=== PATIENT | female | born 1955 | race Caucasian/White ===

== ENCOUNTER 2018-12-07 21:54 | Inpatient (IN) | payer MEDICARE, OTHER ==
[2018-12-07] MEDS ORDERED: SUCCINYLCHOLINE CHLORIDE VIAL 200 MG/10 ML VIAL IV STA (21:59)
[2018-12-07] MEDS ORDERED: ETOMIDATE 2 MG/ML 10 ML VIAL IVP STA (21:59)
[2018-12-07 22:01] LABS: Glucose,Whole Blood 230 mg/dL (75-99)
[2018-12-07] MEDS ORDERED: IPRATROPIUM-ALBUTEROL 3 ML NEB INHALATION STA (22:10)
[2018-12-07] MEDS ORDERED: MAGNESIUM SULFATE-D5W PMX 2 GM in DEXTROSE/WATER 1 100ML.BAG IVPB STA (22:10)
[2018-12-07] MEDS ORDERED: SODIUM CHLORIDE 0.9% 1,000 ML IV STA (22:10)
[2018-12-07] MEDS ORDERED: methylPREDNISolone SOD SUCCI 125 MG/2 ML VIAL IV STA (22:10)
[2018-12-07] MEDS ORDERED: PROPOFOL 1,000 MG in EMPTY BAG 1 BAG IV ONE (22:14)
[2018-12-07] MEDS ORDERED: PROPOFOL 10 MG/ML 20 ML VIAL IV ONE (22:25)
[2018-12-07 22:30] LABS: Appearance,Urine Clear (Clear); Bilirubin,Urine Negative (Negative); Blood,Urine Negative (Negative); Color,Urine Yellow; Glucose,Urine (UA) Negative (Negative); Ketones,Urine Negative (Negative); Leukocyte Esterase,Urine Negative (Negative); Nitrite,Urine Negative (Negative); Protein,Urine Negative (Negative); Specific Gravity,Urine 1.015 (1.001-1.035); Urobilinogen,Urine <2.0 mg/dL (<2.0)
[2018-12-07 22:31] LABS: HCT 45.3 % (34.0-46.0); HGB 14.2 gm/dL (11.4-16.0); MCH 29.5 pg (25.0-35.0); MCHC 31.4 g/dL (31.0-37.0); MCV 93.8 fL (80.0-100.0); Mean Platelet Volume 8.7; Platelet Count 335 k/uL (150-450); RBC 4.83 m/uL (3.80-5.40); RDW 14.3 % (11.5-15.5); WBC 16.9 k/uL (3.8-10.6)
[2018-12-07 22:39] LABS: Albumin 4.2 g/dL (3.5-5.0); Calcium 9.2 mg/dL (8.4-10.2); Magnesium 2.3 mg/dL (1.6-2.3); Potassium 4.6 mmol/L (3.5-5.1); Total Bilirubin 0.3 mg/dL (0.2-1.3); Total Protein 6.4 g/dL (6.3-8.2)
[2018-12-07 22:41] LABS: D-Dimer 0.4 mg/L FEU (<0.60); Partial Thromboplastin Time 27.2 sec (22.0-30.0); Prothrombin Time 10.6 sec (9.0-12.0)
--- NOTE | 2018-12-07 22:42 | XR ---
EXAM: XR Chest, 1 View CLINICAL HISTORY: ITS.REASON XR Reason: tube placement TECHNIQUE: Frontal view of the chest. COMPARISON: No relevant prior studies available. FINDINGS: Lungs: Unremarkable. No consolidation. Pleural space: Unremarkable. No pneumothorax. Heart: Unremarkable. No cardiomegaly. Mediastinum: Unremarkable. Bones/joints: Unremarkable. Tubes, lines and devices: Endotracheal tube tip is approximately 4.4 cm above delon. IMPRESSION: No acute findings.
[2018-12-07 22:47] LABS: ABG Base Excess -10.9 mmol/L; ABG HCO3 17 mmol/L (21-25); ABG Oxygen Saturation 99.4 % (94-97); ABG PCO2 45 mmHg (35-45); ABG PO2 296 mmHg (83-108); ABG TCO2 19 mmol/L (19-24); Allen Test Performed? Yes
[2018-12-07] MEDS ORDERED: MIDAZOLAM 1 MG/ML 5 ML VIAL IV STA (22:55)
[2018-12-07 23:14] LABS: Band Neutrophils % 2 %; Eosinophils # (M) 0.68 k/uL (0-0.7); Lymphocytes # (M) 10.82 k/uL (1.0-4.8); Monocytes # (M) 1.18 k/uL (0-1.0); Neutrophils % (M) 23 %; Nucleated Red Blood Cells 0 /100 WBC (0-0); Total Cells Counted 100
[2018-12-07] MEDS ORDERED: ONDANSETRON 4 MG/2 ML VIAL IVP STA (23:16)
[2018-12-07 23:20] LABS: Poikilocytosis (M) Present
--- NOTE | 2018-12-07 23:33 | ED ---
General Adult HPI - General Chief complaint: Shortness of Breath Stated complaint: Diff Breathing Source: patient, EMS Mode of arrival: EMS Limitations: no limitations - History of Present Illness Initial comments: The patient is a 63-year-old female with past medical history of asthma who presents to the emergency department in respiratory distress. The history is provided by EMS and her daughter. Daughter states that they were at her house eating dinner. The patient had sudden onset of an asthma exacerbation. She does keep some of her equipment at her daughter's house. She did take a nebulizer breathing treatment which did not improve her symptoms. Daughter states that she then went to the window to get some air and went unresponsive. She did not fall to the ground. EMS was called. They state that the patient was satting in the 60s. She was unresponsive. They did attempt to intubate the patient however she still had a gag reflex. She does arrive to us unresponsive to painful stimuli. She has about 6 respirations per minute. The daughter states that she felt well up until her episode. There is no report of any cough, fevers or chills. Daughter states that she was exposed to cats and does have a severe ALLERGY to them. Remainder of the HPI is limited. - Related Data Home Medications Medication Instructions Recorded Confirmed ALPRAZolam [Xanax] 0.5 mg PO BID 02/23/14 12/07/18 Albuterol Inhaler [Ventolin Hfa 1 - 2 puff INHALATION RT-Q6H PRN 02/23/14 12/07/18 Inhaler] Albuterol Nebulized [Ventolin 2.5 mg INHALATION RT-Q4H PRN 02/23/14 12/07/18 Nebulized] Cyclobenzaprine [Flexeril] 5 mg PO TID PRN 12/07/18 12/07/18 Gabapentin [Neurontin] 100 mg PO TID 12/07/18 12/07/18 Ketorolac [Toradol] 10 mg PO Q6HR PRN 12/07/18 12/07/18 Allergies Allergy/AdvReac Type Severity Reaction Status Date / Time bupropion HCl Allergy Rash/Hives Verified 12/07/18 23:09 [From Wellbutrin] shellfish derived Allergy Anaphylaxis Verified 12/07/18 23:09 Review of Systems ROS Statement: Those systems with pertinent positive or pertinent negative responses have been documented in the HPI. ROS Other: All systems not noted in ROS Statement are negative. Past Medical History Past Medical History: Asthma, COPD, Fibromyalgia, Sleep Apnea/CPAP/BIPAP Additional Past Medical History / Comment(s): MANY ENVIRONMENTAL ALLERGIES. HX MIGRAINES. HX KIDNEY AND BLADDER STONES History of Any Multi-Drug Resistant Organisms: None Reported, MRSA Date of last positivie culture/infection: 03/16/2013 MDRO Source:: THIRD FINGER LEFT HAND Past Surgical History: Heart Catheterization, Hysterectomy, Orthopedic Surgery Additional Past Surgical History / Comment(s): RT ROTATOR CUFF REPAIR. COLONOSCOPY. RHINOPLASTY Past Anesthesia/Blood Transfusion Reactions: Motion Sickness, Postoperative N ausea & Vomiting (PONV) Past Psychological History: Anxiety, Depression Smoking Status: Current every day smoker Past Alcohol Use History: Heavy Past Drug Use History: None Reported, Marijuana - Past Family History Mother Family Medical History: Cancer, Deep Vein Thrombosis (DVT) General Exam Limitations: no limitations Course Vital Signs 12/07/18 12/07/18 12/07/18 21:59 22:23 22:33 Temperature 98.2 F Pulse Rate 138 H 144 H 154 H Respiratory 25 H Rate Blood Pressure 135/92 75/38 O2 Sat by Pulse 95 96 Oximetry 12/07/18 12/07/18 12/07/18 22:45 23:00 23:30 Temperature Pulse Rate 154 H 97 89 Respiratory 25 H 40 H 17 Rate Blood Pressure 94/78 102/61 107/68 O2 Sat by Pulse 98 100 100 Oximetry 12/07/18 12/08/18 23:45 00:00 Temperature Pulse Rate 87 91 Respiratory 17 18 Rate Blood Pressure 104/75 105/88 O2 Sat by Pulse 100 100 Oximetry EKG Findings - EKG Comments: EKG Findings:: At 2203 demonstrate a troponin fibrillation with a rapid ventricular response of 139. VT interval is 0 QRS 80. QTC of 474. There are no acute ST segment elevations or depressions concerning for ischemic changes. Repeat EKG at 2306 demonstrates a normal sinus rhythm with a ventricular rate of 94. VT Interval 134. QRS 66. QTC of 400. There are no acute ST segment elevations or depressions concerning for ischemic changes Medical Decision Making - Medical Decision Making Upon arrival the patient is placed immediately in trauma bay 2. She is hooked up to continuous pulse ox and cardiac monitoring. The patient is satting only in the 80s being bagged by EMS. She is unresponsive at this time, I did intubate the patient. Rapid sequence intubation was performed using 100 mg of succinylcholine and 20 mg of etomidate. This Glidescope was utilized. The tube was visualized passing through the cords. A 7-1/2 tube was secured at 24 cm at the lip. Breath sounds were auscultated bilaterally. The patient was placed on the vent. We did provide her with a DuoNeb breathing treatment. She was provided with 125 mg of Solu-Medrol and 2 g of magnesium. A post intubation chest x-ray was performed and demonstrates adequate tube placement with no signs of pneumothorax. Laboratory studies were conducted. Upon review of the results are discussed with the patient's family. Initial 12-lead EKG demonstrated atrial fibrillation. The patient does spontaneously convert and a second EKG demonstrates a normal sinus rhythm. The patient will be admitted to the intensive care unit. I called and discussed case with Dr. Carol singer present to the ED to evaluate the patient. A call discuss the case with Dr. Carr who did accept the admission. Dr. Carr does request a negative CT of the patient's brain. Throughout the stay within the ED the patient maintained a stable heart rate and pulse ox. She was difficult to sedate on the propofol as with increme ntal increases in the propofol she would have a drop in her blood pressure. She was given within 4 mg of Versed. I then ordered a Versed drip. The patient's was titrated him a Versed drip per remained difficult to sedate and therefore was also given a 50 g dose of fentanyl. She was then taken to CT in stable condition and transferred up to the ICU. - Lab Data Result diagrams: 12/07/18 22:06 12/07/18 22:06 Lab Results 12/07/18 12/07/18 12/07/18 Range/Units 22:00 22:06 22:06 WBC 16.9 H (3.8-10.6) k/uL RBC 4.83 (3.80-5.40) m/uL Hgb 14.2 (11.4-16.0) gm/dL Hct 45.3 (34.0-46.0) % MCV 93.8 (80.0-100.0) fL MCH 29.5 (25.0-35.0) pg MCHC 31.4 (31.0-37.0) g/dL RDW 14.3 (11.5-15.5) % Plt Count 335 (150-450) k/uL Neutrophils % (Manual) 23 % Band Neutrophils % 2 % Lymphocytes % (Manual) 64 % Monocytes % (Manual) 7 % Eosinophils % (Manual) 4 % Neutrophils # (Manual) 4.20 (1.3-7.7) k/uL Lymphocytes # (Manual) 10.82 H (1.0-4.8) k/uL Monocytes # (Manual) 1.18 H (0-1.0) k/uL Eosinophils # (Manual) 0.68 (0-0.7) k/uL Nucleated RBCs 0 (0-0) /100 WBC Manual Slide Review Performed Poikilocytosis (manual Present PT (9.0-12.0) sec INR (<1.2) APTT (22.0-30.0) sec D-Dimer (<0.60) mg/L FEU Sample Site ABG pH (7.35-7.45) ABG pCO2 (35-45) mmHg ABG pO2 (83-108) mmHg ABG HCO3 (21-25) mmol/L ABG Total CO2 (19-24) mmol/L ABG O2 Saturation (94-97) % ABG Base Excess mmol/L Roderick Test FiO2 % Sodium 142 (137-145) mmol/L Potassium 4.6 (3.5-5.1) mmol/L Chloride 107 (98-107) mmol/L Carbon Dioxide 20 L (22-30) mmol/L Anion Gap 15 mmol/L BUN 16 (7-17) mg/dL Creatinine 1.01 (0.52-1.04) mg/dL Est GFR (CKD-EPI)AfAm 69 (>60 ml/min/1.73 sqM) Est GFR (CKD-EPI)NonAf 60 (>60 ml/min/1.73 sqM) Glucose 250 H (74-99) mg/dL POC Glucose (mg/dL) 230 H (75-99) mg/dL POC Glu Post Anesthesia Care Unit Nurse ID Tierra Lange Calcium 9.2 (8.4-10.2) mg/dL Magnesium 2.3 (1.6-2.3) mg/dL Total Bilirubin 0.3 (0.2-1.3) mg/dL AST 30 (14-36) U/L ALT 31 (9-52) U/L Alkaline Phosphatase 67 (38-126) U/L Troponin I (0.000-0.034) ng/mL NT-Pro-B Natriuret Pep pg/mL Total Protein 6.4 (6.3-8.2) g/dL Albumin 4.2 (3.5-5.0) g/dL Urine Color Urine Appearance (Clear) Urine pH (5.0-8.0) Ur Specific [place] (1.001-1.035) Urine Protein (Negative) Urine Glucose (UA) (Negative) Urine Ketones (Negative) Urine Blood (Negative) Urine Nitrite (Negative) Urine Bilirubin (Negative) Urine Urobilinogen (<2.0) mg/dL Ur Leukocyte Esterase (Negative) 12/07/18 12/07/18 12/07/18 Range/Units 22:06 22:06 22:06 WBC (3.8-10.6) k/uL RBC (3.80-5.40) m/uL Hgb (11.4-16.0) gm/dL Hct (34.0-46.0) % MCV (80.0-100.0) fL MCH (25.0-35.0) pg MCHC (31.0-37.0) g/dL RDW (11.5-15.5) % Plt Count (150-450) k/uL Neutrophils % (Manual) % Band Neutrophils % % Lymphocytes % (Manual) % Monocytes % (Manual) % Eosinophils % (Manual) % Neutrophils # (Manual) (1.3-7.7) k/uL Lymphocytes # (Manual) (1.0-4.8) k/uL Monocytes # (Manual) (0-1.0) k/uL Eosinophils # (Manual) (0-0.7) k/uL Nucleated RBCs (0-0) /100 WBC Manual Slide Review Poikilocytosis (manual PT 10.6 (9.0-12.0) sec INR 1.0 (<1.2) APTT 27.2 (22.0-30.0) sec D-Dimer 0.40 (<0.60) mg/L FEU Sample Site ABG pH (7.35-7.45) ABG pCO2 (35-45) mmHg ABG pO2 (83-108) mmHg ABG HCO3 (21-25) mmol/L ABG Total CO2 (19-24) mmol/L ABG O2 Saturation (94-97) % ABG Base Excess mmol/L Roderick Test FiO2 % Sodium (137-145) mmol/L Potassium (3.5-5.1) mmol/L Chloride (98-107) mmol/L Carbon Dioxide (22-30) mmol/L Anion Gap mmol/L BUN (7-17) mg/dL Creatinine (0.52-1.04) mg/dL Est GFR (CKD-EPI)AfAm (>60 ml/min/1.73 sqM) Est GFR (CKD-EPI)NonAf (>60 ml/min/1.73 sqM) Glucose (74-99) mg/dL POC Glucose (mg/dL) (75-99) mg/dL POC Glu Post Anesthesia Care Unit Nurse ID Calcium (8.4-10.2) mg/dL Magnesium (1.6-2.3) mg/dL Total Bilirubin (0.2-1.3) mg/dL AST (14-36) U/L ALT (9-52) U/L Alkaline Phosphatase (38-126) U/L Troponin I <0.012 (0.000-0.034) ng/mL NT-Pro-B Natriuret Pep 56 pg/mL Total Protein (6.3-8.2) g/dL Albumin (3.5-5.0) g/dL Urine Color Urine Appearance (Clear) Urine pH (5.0-8.0) Ur Specific [place] (1.001-1.035) Urine Protein (Negative) Urine Glucose (UA) (Negative) Urine Ketones (Negative) Urine Blood (Negative) Urine Nitrite (Negative) Urine Bilirubin (Negative) Urine Urobilinogen (<2.0) mg/dL Ur Leukocyte Esterase (Negative) 12/07/18 12/07/18 Range/Units 22:15 22:44 WBC (3.8-10.6) k/uL RBC (3.80-5.40) m/uL Hgb (11.4-16.0) gm/dL Hct (34.0-46.0) % MCV (80.0-100.0) fL MCH (25.0-35.0) pg MCHC (31.0-37.0) g/dL RDW (11.5-15.5) % Plt Count (150-450) k/uL Neutrophils % (Manual) % Band Neutrophils % % Lymphocytes % (Manual) % Monocytes % (Manual) % Eosinophils % (Manual) % Neutrophils # (Manual) (1.3-7.7) k/uL Lymphocytes # (Manual) (1.0-4.8) k/uL Monocytes # (Manual) (0-1.0) k/uL Eosinophils # (Manual) (0-0.7) k/uL Nucleated RBCs (0-0) /100 WBC Manual Slide Review Poikilocytosis (manual PT (9.0-12.0) sec INR (<1.2) APTT (22.0-30.0) sec D-Dimer (<0.60) mg/L FEU Sample Site rrad ABG pH 7.20 L (7.35-7.45) ABG pCO2 45 (35-45) mmHg ABG pO2 296 H (83-108) mmHg ABG HCO3 17 L (21-25) mmol/L ABG Total CO2 19 (19-24) mmol/L ABG O2 Saturation 99.4 H (94-97) % ABG Base Excess -10.9 mmol/L Roderick Test Yes FiO2 100 % Sodium (137-145) mmol/L Potassium (3.5-5.1) mmol/L Chloride (98-107) mmol/L Carbon Dioxide (22-30) mmol/L Anion Gap mmol/L BUN (7-17) mg/dL Creatinine (0.52-1.04) mg/dL Est GFR (CKD-EPI)AfAm (>60 ml/min/1.73 sqM) Est GFR (CKD-EPI)NonAf (>60 ml/min/1.73 sqM) Glucose (74-99) mg/dL POC Glucose (mg/dL) (75-99) mg/dL POC Glu Post Anesthesia Care Unit Nurse ID Calcium (8.4-10.2) mg/dL Magnesium (1.6-2.3) mg/dL Total Bilirubin (0.2-1.3) mg/dL AST (14-36) U/L ALT (9-52) U/L Alkaline Phosphatase (38-126) U/L Troponin I (0.000-0.034) ng/mL NT-Pro-B Natriuret Pep pg/mL Total Protein (6.3-8.2) g/dL Albumin (3.5-5.0) g/dL Urine Color Yellow Urine Appearance Clear (Clear) Urine pH 5.0 (5.0-8.0) Ur Specific [place] 1.015 (1.001-1.035) Urine Protein Negative (Negative) Urine Glucose (UA) Negative (Negative) Urine Ketones Negative (Negative) Urine Blood Negative (Negative) Urine Nitrite Negative (Negative) Urine Bilirubin Negative (Negative) Urine Urobilinogen <2.0 (<2.0) mg/dL Ur Leukocyte Esterase Negative (Negative) Critical Care Time Critical Care Time: Yes (35 minutes) Disposition Clinical Impression: Respiratory disorder with ventilator dependence, Asthma exacerbation Disposition: ADMITTED IP TO THIS [facility] Condition: Serious Is patient prescribed a controlled substance at d/c from ED?: No Decision to Admit Reason: Admit from EC Decision Date: 12/07/18 Decision Time: 23:49
[2018-12-07] MEDS ORDERED: MIDAZOLAM HCL 50 MG in SODIUM CHLORIDE 0.9% 40 ML IV SCH (23:45)
[2018-12-07] MEDS ORDERED: NALOXONE 0.4 MG/ML 1 ML VIAL IV PRN (23:50)
[2018-12-08] MEDS ORDERED: fentaNYL (PF) 50 MCG/ML 2 ML AMP IVP STA (00:39)
--- NOTE | 2018-12-08 00:55 | P.HPIM ---
History of Present Illness H&P Date: 12/08/18 Patient is 63-year-old female with a PMH of asthma, tobacco abuse, multiple environmental allergens, objective sleep apnea on CPAP, fibromyalgia, and Sjogren's syndrome, presented to the ED via EMS for respiratory distress. The patient was in her usual state of health and was at her daughter's house where she suddenly developed shortness of breath, walked over to the window to try and get some fresh air when her breathing worsened and she developed wheezing. The patient is allergic to cats and the daughter was concerned she may have been exposed to cat allergens at her home. EMS was activated and upon arrival, the patient was found to be in severe respiratory distress. She was hypoxic w/ SpO2 % in the 60s. They attempted to intubate the patient en-route but were unable to since the patient had a gag-reflex. The patient was subsequently brought in to the ED where as per the ED physician, the patient had severely diminished breath sounds with apical wheezing. She was intubated and placed on mechanical ventilation. She was started on Sedation w/ Propofol and Versed, though the initial bolus of propofol did drop her BP. Also was informed by the ED physician that patient was noted to be in Afib w/ RVR upon presentation, though converted spontaneously following intubation. The patient was seen in the ED post intubation with family at the bedside. They reported that the patient had never been hospitalized for an asthma exacerbation. They otherwise denied the patient complaining of anything prior to this episode. The patient underwent an extensive evaluation in the ED w/ post-intubation CXR showing ETT 4 cm above the delon. Laboratory evaluation revealed Trop < 0.012, BNP 56, D-dimer 0.40, WBC count 16.9, Hgb 14.2, Na 142, K 4.6, BUN 16, Cr 1.01, and Glucose 250. The patient is being admitted to the MICU for further management of her acute asthma exacerbation w/ acute hypoxic respiratory failure. Review of Systems ROS unobtainable: due to endotracheal tube Past Medical History Past Medical History: Asthma, COPD, Fibromyalgia, Sleep Apnea/CPAP/BIPAP Additional Past Medical History / Comment(s): MANY ENVIRONMENTAL ALLERGIES. HX MIGRAINES. HX KIDNEY AND BLADDER STONES History of Any Multi-Drug Resistant Organisms: None Reported, MRSA Date of last positivie culture/infection: 03/16/2013 MDRO Source:: THIRD FINGER LEFT HAND Past Surgical History: Heart Catheterization, Hysterectomy, Orthopedic Surgery Additional Past Surgical History / Comment(s): RT ROTATOR CUFF REPAIR. COLONOSCOPY. RHINOPLASTY Past Anesthesia/Blood Transfusion Reactions: Motion Sickness, Postoperative Nausea & Vomiting (PONV) Past Psychological History: Anxiety, Depression Smoking Status: Current every day smoker Past Alcohol Use History: Heavy Past Drug Use History: None Reported, Marijuana - Past Family History Mother Family Medical History: Cancer, Deep Vein Thrombosis (DVT) Medications and Allergies Home Medications Medication Instructions Recorded Confirmed Type ALPRAZolam [Xanax] 0.5 mg PO BID 02/23/14 12/07/18 History Albuterol Inhaler [Ventolin Hfa 1 - 2 puff INHALATION RT-Q6H PRN 02/23/14 12/07/18 History Inhaler] Albuterol Nebulized [Ventolin 2.5 mg INHALATION RT-Q4H PRN 02/23/14 12/07/18 History Nebulized] Cyclobenzaprine [Flexeril] 5 mg PO TID PRN 12/07/18 12/07/18 History Gabapentin [Neurontin] 100 mg PO TID 12/07/18 12/07/18 History Ketorolac [Toradol] 10 mg PO Q6HR PRN 12/07/18 12/07/18 History Allergies Allergy/AdvReac Type Severity Reaction Status Date / Time bupropion HCl Allergy Rash/Hives Verified 12/07/18 23:09 [From Wellbutrin] shellfish derived Allergy Anaphylaxis Verified 12/07/18 23:09 Physical Exam Vitals: Vital Signs Temp Pulse Resp BP Pulse Ox 12/08/18 00:00 91 18 105/88 100 12/07/18 23:45 87 17 104/75 100 12/07/18 23:30 89 17 107/68 100 12/07/18 23:00 97 40 H 102/61 100 12/07/18 22:45 154 H 25 H 94/78 98 12/07/18 22:33 154 H 25 H 75/38 96 12/07/18 22:23 144 H 12/07/18 21:59 98.2 F 138 H 135/92 95 Intake and Output 12/07/18 12/07/18 12/08/18 14:59 22:59 06:59 Intake Total 18.126 Balance 18.126 Intake: Intake, IV Titration 18.126 Amount Propofol 1,000 mg In 18.126 Empty Bag 1 bag @ Titrate IV .Q0M ONE Rx#: [id number] Other: Weight 81.647 kg General: Intubated F w/ ETT, in NAD, overweight Derm: no unusual rashes/lesions no unusual ecchymoses, warm, dry Head: atraumatic, normocephalic, symmetric Eyes: Anicteric sclera, pupils equal round reactive to light ENT: Nose and ears atraumatic Neck: no cervical lymphadenopathy, trachea midline, supple Cardiovascular: S1S2 reg, no murmur, positive posterior tibial pulse bilateral, no edema, capillary refill less than 2 seconds Lungs: Bilateral equal breath sounds appreciated, no rales, ronchi, or wheezing appreciated Abdominal: soft, no appreciable organomegaly, normal bowel sounds Ext: no gross muscle atrophy, no contractures Neuro: Moving all extremities, no focal deficits noted Psych: Unable to assess since intubated w/ sedation Results CBC & Chem 7: 12/07/18 22:06 12/07/18 22:06 Labs: Abnormal Lab Results - Last 24 Hours (Table) 12/07/18 12/07/18 12/07/18 Range/Units 22:00 22:06 22:06 WBC 16.9 H (3.8-10.6) k/uL Lymphocytes # (Manual) 10.82 H (1.0-4.8) k/uL Monocytes # (Manual) 1.18 H (0-1.0) k/uL ABG pH (7.35-7.45) ABG pO2 (83-108) mmHg ABG HCO3 (21-25) mmol/L ABG O2 Saturation (94-97) % Carbon Dioxide 20 L (22-30) mmol/L Glucose 250 H (74-99) mg/dL POC Glucose (mg/dL) 230 H (75-99) mg/dL 12/07/18 Range/Units 22:44 WBC (3.8-10.6) k/uL Lymphocytes # (Manual) (1.0-4.8) k/uL Monocytes # (Manual) (0-1.0) k/uL ABG pH 7.20 L (7.35-7.45) ABG pO2 296 H (83-108) mmHg ABG HCO3 17 L (21-25) mmol/L ABG O2 Saturation 99.4 H (94-97) % Carbon Dioxide (22-30) mmol/L Glucose (74-99) mg/dL POC Glucose (mg/dL) (75-99) mg/dL Assessment and Plan Plan: Acute asthma exacerbation w/ hypoxic resp failure requiring mechanical ventilation -ICU level of care -Ventilator bundle, oral hygiene -Will defer sedation and ventilator management to the critical care team -Currently on Propofol and -C/w Solumedrol 60 mg q8h -Critical care consult Episode of Afib, possibly due to multiple uses of beta agoists and hypoxic resp failure -Cardiology consulted -Hold off on anticoagulation for now Leukocytosis, no signs of infection at this time -Monitor for now -Likely due to acute stressor Hyperglycemia -Check A1C -Insulin sliding scale w/ blood glucose monitoring Tobacco abuse DVT prophylaxis -Heparin The patient is admitted with an anticipated more than 2 midnight stay for evaluation of acute asthma exacerbation CODE STATUS:Full Code Discussed with: Sisters Anticipated discharge date: 12/12/[address]: Home A total of 45 minutes was spent on the care of this complex patient more than 50% of the time was spent in counseling and care coordination.
[2018-12-08 01:27] LABS: Glucose,Whole Blood 107 mg/dL (75-99)
[2018-12-08] MEDS ORDERED: INSULIN ASPART (NovoLOG) 100 UNIT/ML VIAL SQ SCH ×2 (01:30→06:00)
--- NOTE | 2018-12-08 01:38 | CT ---
EXAM: CT Head Without Intravenous Contrast CLINICAL HISTORY: ITS.REASON CT Reason: pain TECHNIQUE: Axial computed tomography images of the head/brain without intravenous contrast. CTDI is 49 mGy and DLP is 1204 mGy-cm. This CT exam was performed using one or more of the following dose reduction techniques: automated exposure control, adjustment of the mA and/or kV according to patient size, and/or use of iterative reconstruction technique. COMPARISON: No relevant prior studies available. FINDINGS: Brain: No hemorrhage, large hypodensity, or mass effect. Ventricles: No hydrocephalus. Mild cerebral volume loss. Bones/joints: Unremarkable. Soft tissues: Unremarkable. Sinuses: Unremarkable. Mastoid air cells: Clear. IMPRESSION: No acute hemorrhage, hydrocephalus, or mass effect.
[2018-12-08] MEDS: PROPOFOL 1,000 MG in EMPTY BAG 1 BAG IV SCH ×2 (02:45→06:51)
[2018-12-08] MEDS ORDERED: DEXTROSE 5% IN WATER 1,000 ML with SODIUM BICARB (1 MEQ/ML) 150 ML IV SCH (03:15)
[2018-12-08] MEDS ORDERED: fentaNYL (PF) 1,000 MCG in SODIUM CHLORIDE 0.9% 80 ML IV SCH ×2 (03:15→04:00)
[2018-12-08 04:25] LABS: Basophils % (A) 0 %; Eosinophils # (A) 0.1 k/uL (0-0.7); Eosinophils % (A) 1 %; HGB 14.2 gm/dL (11.4-16.0); Lymphocytes # (A) 1.3 k/uL (1.0-4.8); Lymphocytes % (A) 10 %; MCH 29.5 pg (25.0-35.0); MCHC 32.9 g/dL (31.0-37.0); MCV 89.7 fL (80.0-100.0); Mean Platelet Volume 8.4; Monocytes # (A) 0.3 k/uL (0-1.0); Monocytes % (A) 2 %; Neutrophils # (A) 10.7 k/uL (1.3-7.7); Neutrophils % (A) 87 %; Platelet Count 240 k/uL (150-450); WBC 12.3 k/uL (3.8-10.6)
[2018-12-08 04:35] LABS: African American GFR (CKD) >90 (>60 ml/min/1.73 sqM); Anion Gap 9 mmol/L; Blood Urea Nitrogen 19 mg/dL (7-17); Calcium 8.5 mg/dL (8.4-10.2); Carbon Dioxide 21 mmol/L (22-30); Chloride 110 mmol/L (98-107); Glucose 124 mg/dL (74-99); Potassium 4.7 mmol/L (3.5-5.1); Sodium 140 mmol/L (137-145)
[2018-12-08 05:23] LABS: Glucose,Whole Blood 149 mg/dL (75-99)
--- NOTE | 2018-12-08 06:53 | XR ---
EXAMINATION TYPE: XR chest 1V portable DATE OF EXAM: 12/08/2018 CLINICAL HISTORY: Difficulty breathing progress study. TECHNIQUE: Single AP portable semiupright view of the chest is obtained. COMPARISON: Chest x-ray from one day earlier FINDINGS: New nasogastric tube projects below diaphragm. Stable endotracheal tube. Lungs remain abdullahi r without pleural effusion or pneumothorax. Cardiac silhouette size remains within normal limits with atherosclerotic change in aortic knob. Osseous structures are intact. IMPRESSION: Overall stable findings, no acute pulmonary process.
[2018-12-08] MEDS ORDERED: methylPREDNISolone SOD SUCCI 40 MG/ML 1 ML VIAL IV SCH (08:00)
[2018-12-08 08:38] LABS: ABG Base Excess -1.3 mmol/L; ABG HCO3 23 mmol/L (21-25); ABG Oxygen Saturation 99.5 % (94-97); ABG PCO2 37 mmHg (35-45); ABG PH 7.41 (7.35-7.45); ABG PO2 187 mmHg (83-108); ABG TCO2 25 mmol/L (19-24); Allen Test Performed? Yes
[2018-12-08] MEDS ORDERED: CHLORHEXIDINE GLUCONATE 15 ML CUP MUCOUS MEM SCH (09:00)
[2018-12-08] MEDS: IPRATROPIUM-ALBUTEROL 3 ML NEB INHALATION PRN ×2 (09:05→12:07)
--- NOTE | 2018-12-08 09:21 | CONS ---
CONSULTATION Mrs. Jamil is a 63-year-old female who presented to the emergency room with an acute dyspneic event requiring mechanical ventilation. The history is obtained from the records. Apparently, the patient has history of obstructive sleep apnea, chronic tobacco use, bronchial asthma, fibromyalgia, Sjogren syndrome. She was quite dyspneic in the emergency room and was intubated in the emergency room. She had an episode of atrial fibrillation that converted spontaneously to sinus mechanism. She continues to be in sinus mechanism at this time. I do not have any prior records related to cardiac disease. She had no further episode of arrhythmia and no evidence of hemodynamic compromise. She will be seen by Dr. Acosta to further evaluate her lung status and probable wean and extubate. No other history is available at this time. MEDICATION: Medications at home included Toradol, Neurontin, Flexeril, Ventolin, and Xanax on a p.r.n. basis. PHYSICAL EXAMINATION: She is a 63-year-old female, intubated, sedated, no apparent distress. Blood pressure running in the high 80s and 90s with a heart rate in 70s. HEAD: Normocephalic. Eyes sclerae anicteric. NECK: Good carotid upstroke. No jugular venous distention. LUNGS: Clear to auscultation anteriorly. HEART: Regular rate and rhythm S1, S2. No S3. No S4. No murmur or rub. ABDOMEN: Soft, positive bowel sounds. No organomegaly. EXTREMITIES: No edema. Intact distal pulses. LAB DATA: Lab data revealed a pH of 7.2 on admission with pCO2 45 and PO2 of 296. Her initial white blood cells 16.9, BUN and creatinine of 16, and 1.01. Troponin less than 0.012. NT proBNP of 56. Initial EKG showed atrial fibrillation with a rate of [address]-T wave changes. Subsequent EKG revealed a sinus mechanism with rare PVCs and nonspecific ST-T wave changes. Her chest x-ray showed no acute infiltrate. IMPRESSION: 1. Respiratory failure with possible exacerbation of asthma with an acute asthma attack. 2. Transient atrial fibrillation, most likely related to the hypoxemia. RECOMMENDATION: From the cardiac standpoint, I will obtain echocardiogram to evaluate her systolic function otherwise, unless there is any abnormality, then no further cardiac workup will be needed. Thank you for this consult. We will follow with you. MMODL / IJN: [id number] /
[2018-12-08] MEDS: methylPREDNISolone SOD SUCCI 125 MG/2 ML VIAL IV SCH ×3 (09:28→23:46)
[2018-12-08] MEDS: HEPARIN SODIUM,PORCINE 5,000 UNIT/ML 1 ML VIAL SQ SCH ×3 (09:28→23:46)
[2018-12-08] MEDS: PANTOPRAZOLE 40 MG/10 ML VIAL IV SCH (09:29)
--- NOTE | 2018-12-08 10:47 | P.CNPUL ---
History of Present Illness Consult date: 12/08/18 Reason for consult: asthma Chief complaint: Shortness of breath History of present illness: This is a 63-year-old female with history of severe asthma, multiple environmental ALLERGIES, patient had asthma since she was 12 years old. Patient is a current every day smoker, in spite of her underlying asthma. Her primary care physician managing her asthma is Dr. Beck. Patient does not follow up with a technical maintenance specialist regarding her asthma. She is also known to have history of obstructive sleep apnea syndrome, history of fibromyalgia, patient was at her daughter's house, and she started developing an episode of shortness of breath cough and wheezing. Couldn't get her rescue inhaler immediately, and her condition continued to deteriorate fast. Apparently the patient has been exposed to cats at her daughter's house, and may have been the major trigger factor for her pulmonary symptoms. EMS was called to the scene, and the patient was in severe respiratory distress upon their arrival. She was hypoxic and her O2 saturation was 60%. Attempted to intubate the patient on site, but the patient could not be intubated. Upon arrival to the ER, patient was intubated immediately, placed on mechanical ventilation. She was also placed on propofol and Versed. She had a very brief episode of A. fib with RVR shortly after she arrived to the ER, but that resolved and went to sinus rhythm. CT of the brain was nondiagnostic. Patient was placed on bronchodilators, steroids, and I was asked to see the patient on consultation. I evaluated the patient in the ICU, and she sounded fairly clear bilaterally. No crackles or rhonchi or wheezes were noted. Hence the patient was given a trial of pressure support of 8 and CPAP, discontinued her propofol, and patient tolerated the weaning well while I was at bedside. I reviewed her chest x-ray and was noted to be clear. Then proceeded to extubating the patient. She tolerated the extubation well. And she will be kept on steroids and bronchodilators. Review of Systems ROS unobtainable: due to endotracheal tube Past Medical History Past Medical History: Asthma, COPD, Fibromyalgia, Sleep Apnea/CPAP/BIPAP Additional Past Medical History / Comment(s): MANY ENVIRONMENTAL ALLERGIES. HX MIGRAINES. HX KIDNEY AND BLADDER STONES History of Any Multi-Drug Resistant Organisms: None Reported, MRSA Date of last positivie culture/infection: 03/16/2013 MDRO Source:: THIRD FINGER LEFT HAND Past Surgical History: Heart Catheterization, Hysterectomy, Orthopedic Surgery Additional Past Surgical History / Comment(s): RT ROTATOR CUFF REPAIR. COLONOSCOPY. RHINOPLASTY Past Anesthesia/Blood Transfusion Reactions: Motion Sickness, Postoperative Nausea & Vomiting (PONV) Past Psychological History: Anxiety, Depression Smoking Status: Current every day smoker Past Alcohol Use History: Heavy Past Drug Use History: None Reported, Marijuana - Past Family History Mother Family Medical History: Cancer, Deep Vein Thrombosis (DVT) Medications and Allergies Home Medications Medication Instructions Recorded Confirmed Type ALPRAZolam [Xanax] 0.5 mg PO BID 02/23/14 12/07/18 History Albuterol Inhaler [Ventolin Hfa 1 - 2 puff INHALATION RT-Q6H PRN 02/23/14 12/07/18 History Inhaler] Albuterol Nebulized [Ventolin 2.5 mg INHALATION RT-Q4H PRN 02/23/14 12/07/18 History Nebulized] Cyclobenzaprine [Flexeril] 5 mg PO TID PRN 12/07/18 12/07/18 History Gabapentin [Neurontin] 100 mg PO TID 12/07/18 12/07/18 History Ketorolac [Toradol] 10 mg PO Q6HR PRN 12/07/18 12/07/18 History Allergies Allergy/AdvReac Type Severity Reaction Status Date / Time bupropion HCl Allergy Rash/Hives Verified 12/07/18 23:09 [From Wellbutrin] shellfish derived Allergy Anaphylaxis Verified 12/07/18 23:09 Physical Exam Vitals: Vital Signs Temp Pulse Resp BP Pulse Ox 12/08/18 09:19 80 12/08/18 09:05 81 12/08/18 08:15 70 16 86/63 97 12/08/18 08:00 72 16 86/64 98 12/08/18 07:45 70 16 85/64 98 12/08/18 07:30 71 10 L 85/64 97 12/08/18 07:15 72 7 L 91/65 96 12/08/18 07:00 71 13 91/65 98 12/08/18 06:45 72 16 95/70 98 12/08/18 06:30 71 16 95/70 100 12/08/18 06:15 72 16 86/63 94 L 12/08/18 06:00 72 16 82/62 99 12/08/18 05:45 72 16 85/67 98 12/08/18 05:30 73 16 109/90 99 12/08/18 05:15 84 10 L 109/90 99 12/08/18 05:00 72 16 83/62 99 12/08/18 04:45 72 16 79/61 98 12/08/18 04:30 73 16 80/58 100 12/08/18 04:15 72 16 87/62 99 12/08/18 04:00 97.7 F 72 16 92/68 98 12/08/18 03:45 73 16 85/64 100 12/08/18 03:30 73 13 100/79 100 12/08/18 03:15 78 18 88/62 100 12/08/18 03:00 73 16 80/61 100 12/08/18 02:45 70 16 79/59 99 12/08/18 02:30 71 16 79/61 99 12/08/18 02:15 72 16 78/59 100 12/08/18 02:00 72 16 81/59 100 12/08/18 01:45 70 16 84/61 99 12/08/18 01:30 97.5 F L 80 16 91/65 100 12/08/18 01:15 77 16 88/62 100 12/08/18 01:00 78 16 88/60 100 12/08/18 00:00 91 18 105/88 100 12/07/18 23:45 87 17 104/75 100 12/07/18 23:30 89 17 107/68 100 12/07/18 23:00 97 40 H 102/61 100 12/07/18 22:45 154 H 25 H 94/78 98 12/07/18 22:33 139 H 25 H 75/38 96 12/07/18 22:23 144 H 12/07/18 21:59 98.2 F 138 H 135/92 95 Intake and Output 12/07/18 12/08/18 12/08/18 22:59 06:59 14:59 Intake Total 631.695 121.733 Output Total 290 45 Balance 341.695 76.733 Intake: IV 512 70 Dextrose 5% in Water 1, 150 50 000 ml @ 50 mls/hr IV . Q23H ROSALINE with Sodium Bicarb (1 Meq/ml) 150 ml Rx#:[id number] NS carrier 60 20 Sodium Chloride 0.9% 1, 300 000 ml @ 75 mls/hr IV . [id number] STA Rx#:[id number] fentaNYL (PF) 1,000 mcg 2 In Sodium Chloride 0.9% 80 ml @ 0.3 MCG/KG/HR 2. 199 mls/hr IV .Q24H ROSALINE Rx#:[id number] Intake, IV Titration 119.695 51.733 Amount Midazolam HCl 50 mg In 0.433 15.4 Sodium Chloride 0.9% 40 ml @ 1 MG/HR 1 mls/hr IV .Q24H ROSALINE Rx#:[id number] Propofol 1,000 mg In 18.126 Empty Bag 1 bag @ Titrate IV .Q0M ONE Rx#: [id number] Propofol 1,000 mg In 100 36.333 Empty Bag 1 bag @ Titrate IV .Q0M ROSALINE Rx#: [id number] fentaNYL (PF) 1,000 mcg 1.136 In Sodium Chloride 0.9% 80 ml @ 0.3 MCG/KG/HR 2. 199 mls/hr IV .Q24H ROSALINE Rx#:[id number] Output: Urine 290 45 Other: Voiding Method Indwelling Catheter Weight 81.647 kg 73.3 kg Physical Exam: Revealed a 63-year-old female on mechanical ventilation, in no distress. Head: Atraumatic, normocephalic. HEENT:[Neck is supple.] [No neck masses.] [No thyromegaly.] [No JVD.] PERRLA, EOMI, no icterus, endotracheal tube is intact, moist mucous membranes. Chest: [Clear throughout, no crackles, no rhonchi, no wheezes.] Symmetrical chest expansion. Cardiac Exam: [Normal S1 and S2, no S3 gallop, no murmur.] Abdomen: [Soft, nontender, no megaly, no rebound, no guarding, normal bowel sounds.] Extremities: [No clubbing, no edema, no cyanosis.] Neurological Exam: [No focal neurologic deficit.] Alert and oriented 3, no gross focal neurologic deficits. Psychiatric: Anxious mood, blunt affect, normal mental status examination. Skin: No rashes. Lymphatics: No lymphadenopathy. Musculoskeletal: No deformities, normal range of motion throughout, muscle strength is adequate. And symmetrical Results - Laboratory Findings CBC and BMP: 12/08/18 04:09 12/08/18 04:09 ABG ABG pH 7.41 (7.35-7.45) 12/08/18 08:35 ABG pCO2 37 mmHg (35-45) 12/08/18 08:35 ABG pO2 187 mmHg (83-108) H 12/08/18 08:35 ABG O2 Saturation 99.5 % (94-97) H 12/08/18 08:35 PT/INR, D-dimer PT 10.6 sec (9.0-12.0) 12/07/18 22:06 INR 1.0 (<1.2) 12/07/18 22:06 D-Dimer 0.40 mg/L FEU (<0.60) 12/07/18 22:06 Abnormal lab findings: Abnormal Labs 12/07/18 12/07/18 12/07/18 22:00 22:06 22:06 WBC 16.9 H Neutrophils # Lymphocytes # (Manual) 10.82 H Monocytes # (Manual) 1.18 H ABG pH ABG pO2 ABG HCO3 ABG Total CO2 ABG O2 Saturation Chloride Carbon Dioxide 20 L BUN Glucose 250 H POC Glucose (mg/dL) 230 H 12/07/18 12/08/18 12/08/18 22:44 01:26 04:09 WBC 12.3 H Neutrophils # 10.7 H Lymphocytes # (Manual) Monocytes # (Manual) ABG pH 7.20 L ABG pO2 296 H ABG HCO3 17 L ABG Total CO2 ABG O2 Saturation 99.4 H Chloride Carbon Dioxide BUN Glucose POC Glucose (mg/dL) 107 H 12/08/18 12/08/18 12/08/18 04:09 05:21 08:35 WBC Neutrophils # Lymphocytes # (Manual) Monocytes # (Manual) ABG pH ABG pO2 187 H ABG HCO3 ABG Total CO2 25 H ABG O2 Saturation 99.5 H Chloride 110 H Carbon Dioxide 21 L BUN 19 H Glucose 124 H POC Glucose (mg/dL) 149 H - Diagnostic Findings Chest x-ray: image reviewed (No evidence of active disease.) Assessment and Plan Assessment: Impression: 1 acute hypoxic respiratory failure secondary to acute exacerbation of moderate severe bronchial asthma. Requiring intubation and mechanical ventilation. 2 possible underlying component of COPD with acute exacerbation of COPD considering the patient's smoking history. 3 multiple environmental ALLERGIES 4 transient episode of A. fib with RVR, nonsustained, resolved on its own. Most likely related to her acute asthma exacerbation and hypoxic respiratory failure. Being evaluated by cardiology, no major workup is necessary. 5 tobacco dependence syndrome Recommendation: Patient was given a trial of pressure support and CPAP, extubated uneventfully. Continue present bronchodilators including DuoNeb, added Pulmicort, continue IV Solu-Medrol. And Singulair. Counseled regarding smoking cessation. We'll continue to monitor the patient in the intensive care unit for the next 24 hours, and based on her response to treatment over the next 24 hours, may consider transfer to a regular medical floor. Continue GI and DVT prophylaxis. We'll continue to follow. Time with Patient: Greater than 30
[2018-12-08] MEDS ORDERED: IPRATROPIUM-ALBUTEROL 3 ML NEB INHALATION PRN (12:11)
[2018-12-08 12:20] LABS: Glucose,Whole Blood 156 mg/dL (75-99)
[2018-12-08] MEDS: INSULIN ASPART (NovoLOG) 100 UNIT/ML VIAL SQ SCH ×3 (12:53→21:16)
[2018-12-08] MEDS: NICOTINE 21MG/24HR PATCH TRANSDERM SCH (14:15)
[2018-12-08] MEDS: GABAPENTIN 100 MG CAP PO SCH ×2 (14:38→21:12)
[2018-12-08] MEDS: IPRATROPIUM-ALBUTEROL 3 ML NEB INHALATION SCH ×3 (15:19→23:16)
[2018-12-08] MEDS: CYCLOBENZAPRINE 5 MG TAB PO PRN (17:07)
--- NOTE | 2018-12-08 17:35 | P.PN ---
Progress Note - Text Progress Note Date: 12/08/18 (delayed charting see at 0845) Hospitalist Interval Note Patient seen and examined at bedside. Still sedated on vent. Difficulty controlling agitation overnight. No other acute events. Vital signs reviewed General: non toxic, no distress, appears at stated age Derm: warm, dry Head: atraumatic, normocephalic, symmetric Eyes: No lip lesion, pupils small but equal round reactive to light, anicteric sclera Mouth: no lip lesion, ET tube in place Cardiovascular: S1S2 reg, no murmur, positive posterior tibial pulse bilateral, Lungs: CTA bilateral, no rhonchi, no rales , no accessory muscle use, and then Abdominal: soft, nontender to palpation, no guarding, no appreciable organomegaly Ext: no gross muscle atrophy, no edema, no contractures Neuro: Breathing over event, withdrawal to pain in bilateral upper extremities Psych: Sedated on vent Assessment/Plan: Acute exacerbation of moderaed bronchial asthma with resultant acute hypoxic respiratory failure- vent per critical care, on steroids and bronchodilators Tobacco abuse- cessation Severe environmental allergies Single event of A fib - likely due to hypoxemia, await cardio recs This is an update note for patient , for full note on 12/08 see H&P by Dr. Slater. There is no charge associated with this note.
[2018-12-08] MEDS: BUDESONIDE 0.5 MG/2 ML NEBU INHALATION SCH (18:50)
[2018-12-08] MEDS: MONTELUKAST 10 MG TAB PO SCH (21:12)
[2018-12-08 21:17] LABS: Glucose,Whole Blood 258 mg/dL (75-99)
[2018-12-09] MEDS ORDERED: MELATONIN 3 MG TABLET PO PRN (00:55)
[2018-12-09] MEDS: IPRATROPIUM-ALBUTEROL 3 ML NEB INHALATION SCH ×6 (03:51→23:40)
[2018-12-09 05:35] LABS: Basophils % (A) 0 %; Eosinophils % (A) 0 %; HGB 12.3 gm/dL (11.4-16.0); Lymphocytes # (A) 1.5 k/uL (1.0-4.8); Lymphocytes % (A) 12 %; MCH 29.1 pg (25.0-35.0); MCHC 32.4 g/dL (31.0-37.0); MCV 89.9 fL (80.0-100.0); Mean Platelet Volume 8.2; Monocytes # (A) 0.4 k/uL (0-1.0); Monocytes % (A) 3 %; Neutrophils # (A) 10.4 k/uL (1.3-7.7); Neutrophils % (A) 84 %; Platelet Count 240 k/uL (150-450); RBC 4.23 m/uL (3.80-5.40); RDW 13.4 % (11.5-15.5); WBC 12.4 k/uL (3.8-10.6)
[2018-12-09 05:49] LABS: African American GFR (CKD) >90 (>60 ml/min/1.73 sqM); Anion Gap 6 mmol/L; Blood Urea Nitrogen 12 mg/dL (7-17); Calcium 8.6 mg/dL (8.4-10.2); Carbon Dioxide 23 mmol/L (22-30); Chloride 111 mmol/L (98-107); Glucose 153 mg/dL (74-99); Potassium 4.7 mmol/L (3.5-5.1); Sodium 140 mmol/L (137-145)
[2018-12-09 07:05] LABS: Glucose,Whole Blood 145 mg/dL (75-99)
[2018-12-09] MEDS: INSULIN ASPART (NovoLOG) 100 UNIT/ML VIAL SQ SCH ×4 (07:07→21:23)
[2018-12-09] MEDS: BUDESONIDE 0.5 MG/2 ML NEBU INHALATION SCH ×2 (07:21→21:23)
--- NOTE | 2018-12-09 07:25 | XR ---
EXAMINATION TYPE: XR chest 1V portable DATE OF EXAM: 12/09/2018 COMPARISON: 12/08/2018 HISTORY: Shortness of breath TECHNIQUE: Single frontal view of the chest is obtained. FINDINGS: Endotracheal and enteric tubes have been removed in the interim. The lungs are well aerate d other than blunting of the left costophrenic angle. Cardiomediastinal silhouette is within normal l imits. Osseous structures are grossly intact. External pacer pad overlies the right hemithorax slight ly limiting evaluation. IMPRESSION: Interval removal of the enteric and endotracheal tubes. Chronic left basilar pleural-par enchymal change persists trace left pleural effusion.
--- NOTE | 2018-12-09 08:28 | PN ---
PROGRESS NOTE Mrs. Jamil is a 63-year-old female with a history of multiple allergies who presented with respiratory failure requiring mechanical ventilation. She had an episode of atrial fibrillation, but since that time she has been in sinus mechanism. She denies any prior history of chest discomfort or malignant arrhythmia. She is extubated, feeling better. She denies any dizziness or palpitation. She denies any nausea. She continues to be on Neurontin 100 mg 3 times a day, methylprednisolone, Singulair 10 mg daily. PHYSICAL EXAMINATION: Blood pressure 115/90 with the heart rate in the 70s. LUNGS: Clear. HEART: Regular rate and rhythm. S1, S2. No S3. No rub. ABDOMEN: Soft, nontender. EXTREMITIES: No edema. LAB DATA: Labs data revealed a BUN and creatinine 12 and 0.65, potassium 4.7, hemoglobin 12.3. Her chest x-ray shows trace left pleural effusion. IMPRESSION: 1. Respiratory failure related to an allergic reaction. 2. History of bronchial asthma. 3. Paroxysmal atrial fibrillation back in sinus mechanism. 4. History of chronic tobacco use. RECOMMENDATION: From the cardiac standpoint, there is no active cardiac issue. It is possible that her arrhythmia was related to her hypoxemia. We will review the results of her echo. If there is no evidence of abnormality then no further cardiac workup will be needed. We will see her on as-needed basis. Please feel free to call us for any question. MMODL / IJN: [id number] /
[2018-12-09] MEDS: NICOTINE 21MG/24HR PATCH TRANSDERM SCH (08:41)
[2018-12-09] MEDS: PANTOPRAZOLE 40 MG/10 ML VIAL IV SCH (08:41)
[2018-12-09] MEDS: HEPARIN SODIUM,PORCINE 5,000 UNIT/ML 1 ML VIAL SQ SCH ×3 (08:42→23:59)
[2018-12-09] MEDS: methylPREDNISolone SOD SUCCI 125 MG/2 ML VIAL IV SCH ×3 (08:42→23:58)
[2018-12-09] MEDS: GABAPENTIN 100 MG CAP PO SCH ×3 (08:43→21:05)
--- NOTE | 2018-12-09 09:53 | P.PN ---
Subjective Progress Note Date: 12/09/18 Principal diagnosis: shortness of breath, acute exacerbation of asthma/COPD This is a 63-year-old female with history of severe asthma, multiple environmental ALLERGIES, patient had asthma since she was 12 years old. Patient is a current every day smoker, in spite of her underlying asthma. Her primary care physician managing her asthma is Dr. Beck. Patient does not follow up with a computer support specialist instructor regarding her asthma. She is also known to have history of obstructive sleep apnea syndrome, history of fibromyalgia, patient was at her daughter's house, and she started developing an episode of shortness of breath cough and wheezing. Couldn't get her rescue inhaler immediately, and her condition continued to deteriorate fast. Apparently the patient has been exposed to cats at her daughter's house, and may have been the major trigger factor for her pulmonary symptoms. EMS was called to the scene, and the patient was in severe respiratory distress upon their arrival. She was hypoxic and her O2 saturation was 60%. Attempted to intubate the patient on site, but the patient could not be intubated. Upon arrival to the ER, patient was intubated immediately, placed on mechanical ventilation. She was also placed on propofol and Versed. She had a very brief episode of A. fib with RVR shortly after she arrived to the ER, but that resolved and went to sinus rhythm. CT of the brain was nondiagnostic. Patient was placed on bronchodilators, steroids, and I was asked to see the patient on consultation. I evaluated the patient in the ICU, and she sounded fairly clear bilaterally. No crackles or rhonchi or wheezes were noted. Hence the patient was given a trial of pressure support of 8 and CPAP, discontinued her propofol, and patient tolerated the weaning well while I was at bedside. I reviewed her chest x-ray and was noted to be clear. Then pr oceeded to extubating the patient. She tolerated the extubation well. And she will be kept on steroids and bronchodilators. On the 2016 patient seen in follow-up in the intensive care unit, she is awake and alert, in no acute distress, she was successfully extubated yesterday, today she is on room air, denies any dyspnea, cough, wheezing or congestion, no signs are stable, no acute events overnight, no fever or chills, currently in sinus rhythm, she did have an episode of A. fib on admission, cardiology is following. She remains on nebulized bronchodilators, Pulmicort, IV steroids, do es not seem to have any significant chest congestion, nicotine patches on. no running IVs. Today's labs have been reviewed, and are basically unremarkable, white blood cell count is 12.4, hemoglobin is 12.3, sodium is 140, potassium is 4.7, chloride is 111, CO2 is 23, renal profile is within normal limits with BUN at 12 and creatinine 0.65. Today's chest x-ray showed chronic left basilar pleural parenchymal change with trace left pleural effusion, no acute pulmonary process. Objective - Vital Signs Vital signs: Vital Signs Temp 98.4 F 12/09/18 08:00 Pulse 80 12/09/18 08:00 Resp 26 H 12/09/18 08:00 BP 115/90 12/09/18 08:00 Pulse Ox 96 12/09/18 08:00 Intake & Output 12/08/18 12/09/18 12/09/18 18:59 06:59 18:59 Intake Total 158.536 3151 340 Output Total 1095 680 Balance -168.267 695 340 Weight 74.1 kg Intake: IV 875 275 Dextrose 5% in Water 1, 250 000 ml @ 50 mls/hr IV . Q23H ROSALINE with Sodium Bicarb (1 Meq/ml) 150 ml Rx#:[id number] NS carrier 100 Sodium Chloride 0.9% 1, 525 275 000 ml @ 75 mls/hr IV . [id number] STA Rx#:[id number] Intake, IV Titration 51.733 Amount Midazolam HCl 50 mg In 15.4 Sodium Chloride 0.9% 40 ml @ 1 MG/HR 1 mls/hr IV .Q24H ROSALINE Rx#:[id number] Propofol 1,000 mg In 36.333 Empty Bag 1 bag @ Titrate IV .Q0M ROSALINE Rx#: [id number] Oral 1100 340 Output: Urine 1095 680 Other: Voiding Method Bedpan # Voids 1 0 1 - Exam GENERAL EXAM: Alert, pleasant, 63-year-old white female, on room air, with a pulse ox of 96%, comfortable in no apparent distress. HEAD: Normocephalic/atraumatic. EYES: Normal reaction of pupils, equal size. Conjunctiva pink, sclera white. NOSE: Clear with pink turbinates. THROAT: No erythema or exudates. NECK: No masses, no JVD, no thyroid enlargement, no adenopathy. CHEST: No chest wall deformity. Symmetrical expansion. LUNGS: Equal air entry with no crackles, wheeze, rhonchi or dullness. CVS: Regular rate and rhythm, normal S1 and S2, no gallops, no murmurs, no rubs ABDOMEN: Soft, nontender. No hepatosplenomegaly, normal bowel sounds, no guarding or rigidity. EXTREMITIES: No clubbing, no edema, no cyanosis, 2+ pulses and upper and lower extremities. MUSCULOSKELETAL: Muscle strength and tone normal. SPINE: No scoliosis or deformity SKIN: No rashes CENTRAL NERVOUS SYSTEM: Alert and oriented -3. No focal deficits, tone is normal in all 4 extremities. PSYCHIATRIC: Alert and oriented -3. Appropriate affect. Intact judgment and insight. - Labs CBC & Chem 7: 12/09/18 04:54 12/09/18 04:54 Labs: Abnormal Lab Results - Last 24 Hours (Table) 12/08/18 12/08/18 12/09/18 Range/Units 12:19 21:14 04:54 WBC 12.4 H (3.8-10.6) k/uL Neutrophils # 10.4 H (1.3-7.7) k/uL Chloride (98-107) mmol/L Glucose (74-99) mg/dL POC Glucose (mg/dL) 156 H 258 H (75-99) mg/dL 12/09/18 12/09/18 Range/Units 04:54 07:02 WBC (3.8-10.6) k/uL Neutrophils # (1.3-7.7) k/uL Chloride 111 H (98-107) mmol/L Glucose 153 H (74-99) mg/dL POC Glucose (mg/dL) 145 H (75-99) mg/dL Assessment and Plan Plan: Assessment: 1 acute hypoxic respiratory failure secondary to acute exacerbation of moderate severe bronchial asthma. Requiring intubation and mechanical ventilation. 2 possible underlying component of COPD with acute exacerbation of COPD considering the patient's smoking history. 3 multiple environmental ALLERGIES 4 transient episode of A. fib with RVR, nonsustained, resolved on its own. Most likely related to her acute asthma exacerbation and hypoxic respiratory failure. Being evaluated by cardiology, no major workup is necessary. 5 tobacco dependence syndrome Plan: Continue nebulized bronchodilators, IV steroids, Singulair, nicotine patch is in place, she is doing well, no dyspnea, no wheezing or congestion, she can be transferred out of the intensive care unit to a regular medical surgical floor. Anticipate further improvement and a possible discharge in the next 24 hours. We will need to see her in the office in the outpatient setting and will need outpatient PFT optimization of her asthma and COPD I performed a history & physical examination of the patient and discussed their management with my nurse practitioner, Vicki Stephens. I reviewed the nurse practitioner's note and agree with the documented findings and plan of care. Lung sounds are positive for clear breath sounds. The findings and the impression was discussed with the patient. I attest to the documentation by the nurse practitioner. Time with Patient: Less than 30
[2018-12-09] MEDS: CYCLOBENZAPRINE 5 MG TAB PO PRN (10:11)
[2018-12-09 10:55] LABS: Hemoglobin A1C 5.3 % (4.0-6.0)
--- NOTE | 2018-12-09 12:01 | ECHOF ---
Referral Reason:afib MEASUREMENTS -------- HEIGHT: 167.6 cm WEIGHT: 73.9 kg BP: 109/64 RVIDd: 2.7 cm (< 3.3) IVSd: 1.3 cm (0.6 - 1.1) LVIDd: 4.3 cm (3.9 - 5.3) LVPWd: 1.2 cm (0.6 - 1.1) IVSs: 1.5 cm LVIDs: 3.0 cm LVPWs: 1.6 cm LA Diam: 3.2 cm (2.7 - 3.8) LAESV Index (A-L): 20.71 ml/m Ao Diam: 3.2 cm (2.0 - 3.7) AV Cusp: 2.0 cm (1.5 - 2.6) MV EXCURSION: 11.280 mm (> 18.000) MV EF SLOPE: 45 mm/s (70 - 150) EPSS: 0.6 cm MV E Monroe: 0.98 m/s MV DecT: 234 ms MV A Monroe: 1.10 m/s MV E/A Ratio: 0.89 RAP: 5.00 mmHg RVSP: 35.32 mmHg FINDINGS -------- Sinus rhythm. This was a technically good study. The left ventricular size is normal. There is mild concentric left ventricular hypertrophy. Overa ll left ventricular systolic function is normal with, an EF between 60 - 65 %. The right ventricle is normal in size. Normal LA size by volume 22+/-6 ml/m2. The right atrium is normal in size. Interatrial and interventricular septum intact. The aortic valve is trileaflet and appears structurally normal. Mild mitral regurgitation is present. Mild tricuspid regurgitation present. There is mild pulmonary hypertension. The right ventricular systolic pressure, as measured by Doppler, is 35.32mmHg. Trace/mild (physiologic) pulmonic regurgitation. The aortic root size is normal. Normal inferior vena cava with normal inspiratory collapse consistent with estimated right atrial pre ssure of 5 mmHg. There is no pericardial effusion. CONCLUSIONS -------- 1. Sinus rhythm. 2. This was a technically good study. 3. The left ventricular size is normal. 4. There is mild concentric left ventricular hypertrophy. 5. Overall left ventricular systolic function is normal with, an EF between 60 - 65 %. 6. The right ventricle is normal in size. 7. Normal LA size by volume 22+/-6 ml/m2. 8. The right atrium is normal in size. 9. Interatrial and interventricular septum intact. 10. The aortic valve is trileaflet and appears structurally normal. 11. Mild mitral regurgitation is present. 12. Mild tricuspid regurgitation present. 13. There is mild pulmonary hypertension. 14. The right ventricular systolic pressure, as measured by Doppler, is 35.32mmHg. 15. Trace/mild (physiologic) pulmonic regurgitation. 16. The aortic root size is normal. 17. Normal inferior vena cava with normal inspiratory collapse consistent with estimated right atrial pressure of 5 mmHg. 18. There is no pericardial effusion. CENTER PUNCH OPERATOR: Angelique Salinas RDCS
[2018-12-09 12:19] LABS: Glucose,Whole Blood 161 mg/dL (75-99)
[2018-12-09 17:17] LABS: Glucose,Whole Blood 178 mg/dL (75-99)
[2018-12-09] MEDS: MONTELUKAST 10 MG TAB PO SCH (21:05)
[2018-12-09 21:20] LABS: Glucose,Whole Blood 176 mg/dL (75-99)
[2018-12-09 23:21] VITALS: RESP 20
--- NOTE | 2018-12-10 01:23 | P.PN ---
Progress Note - Text Progress Note Date: 12/09/18 Presenting complaint: Short of breath Interval history: This is a patient was a diagnosis of asthma since the age of 12 also smoker admitted with severe COPD exacerbation and acute respiratory failure. Patient had to be intubated. Also had a brief from of atrial fibrillation. Today-this morning moved out of the ICU. Breathing better. Some wheezing. No sputum. Did tolerate her diet. Has been out of bed. No fever no chills. Review of systems: Was done for constitutional, cardiovascular, GI, pulmonary. relevant finding as above Active Medications Albuterol/Ipratropium (Duoneb 0.5 Mg-3 Mg/3 Ml Soln) 3 ml INHALATION RT-Q2H PRN PRN Reason: Shortness Of Breath Or Wheezing Albuterol/Ipratropium (Duoneb 0.5 Mg-3 Mg/3 Ml Soln) 3 ml INHALATION RT-Q4H [facility] Last Admin: 12/09/18 23:40 Dose: 3 ml Documented by: Budesonide (Pulmicort) 0.5 mg INHALATION RT-BID [facility] Last Admin: 12/09/18 21:23 Dose: 0.5 mg Documented by: Cyclobenzaprine HCl (Flexeril) 5 mg PO TID PRN PRN Reason: Spasms Last Admin: 12/09/18 10:11 Dose: 5 mg Documented by: Gabapentin (Neurontin) 100 mg PO TID [facility] Last Admin: 12/09/18 21:05 Dose: 100 mg Documented by: Heparin Sodium (Porcine) (Heparin) 5,000 unit SQ Q8HR [facility] Last Admin: 12/09/18 23:59 Dose: 5,000 unit Documented by: Insulin Aspart (Novolog) 0 unit SQ [facility]; Protocol Last Admin: 12/09/18 21:23 Dose: 4 unit Documented by: Melatonin (Melatonin) 3 mg PO HS PRN PRN Reason: Insomnia Methylprednisolone Sodium Succinate (Solu-Medrol) 60 mg IV Q8HR [facility] Last Admin: 12/09/18 23:58 Dose: 60 mg Documented by: Montelukast Sodium (Singulair) 10 mg PO HS [facility] Last Admin: 12/09/18 21:05 Dose: 10 mg Documented by: Naloxone HCl (Narcan) 0.2 mg IV Q2M PRN PRN Reason: Opioid Reversal Nicotine (Habitrol 21mg/24hr Patch) 1 patch TRANSDERM DAILY [facility] Last Admin: 12/09/18 08:41 Dose: 1 patch Documented by: Pantoprazole Sodium (Protonix) 40 mg PO DAILY [facility] On examination: VITAL SIGNS: [98, 74, 20, 110/69, 98% room air] GENERAL APPEARANCE: Sitting up in bed, not in distress. HEENT: Normal external appearance of nose and ear. Oral cavity normal EYES: Pupils equal. Conjunctiva normal. NECK: JVD not raised. Mass not palpable. RESPIRATORY: Respiratory effort increased, decreased breath sounds. CARDIOVASCULAR: First and second sounds normal. No edema. ABDOMEN: Soft. Liver and spleen not palpable. No tenderness. No mass palpable. PSYCHIATRY: Alert and oriented x3. Mood and affect normal. INVESTIGATIONS, reviewed in the clinical context: White count 12.4, hemoglobin 12.3, potassium 4.7, creatinine 0.65 Accu-Cheks 161, 178 Assessment: -Acute asthma/COPD overlap syndrome, exacerbation in a current smoker -Chronic nicotine dependence patient active cigarette smoker -Hyperglycemia secondary to steroids -Obstructive sleep apnea -Anxiety not otherwise specified Plan: Patient is doing better since admission. We'll cut back and Solu-Medrol. Bronchodilators to continue. Encouraged ablate. Hoping to discharge in 24 hours. Smoke cessation counseling: This was done with the patient. Nicotine patch will be given. More than 3 minutes was spent on this aspect of the case.
[2018-12-10] MEDS: HEPARIN SODIUM,PORCINE 5,000 UNIT/ML 1 ML VIAL SQ SCH ×2 (02:19→07:54)
[2018-12-10] MEDS: IPRATROPIUM-ALBUTEROL 3 ML NEB INHALATION SCH ×3 (03:25→11:06)
[2018-12-10 04:51] VITALS: BP 109/51; TEMP 97.9
[2018-12-10] MEDS: BUDESONIDE 0.5 MG/2 ML NEBU INHALATION SCH (07:27)
[2018-12-10 07:29] LABS: Glucose,Whole Blood 135 mg/dL (75-99)
[2018-12-10] MEDS: NICOTINE 21MG/24HR PATCH TRANSDERM SCH (07:53)
[2018-12-10] MEDS: GABAPENTIN 100 MG CAP PO SCH (07:54)
[2018-12-10] MEDS: INSULIN ASPART (NovoLOG) 100 UNIT/ML VIAL SQ SCH ×2 (07:54→12:08)
[2018-12-10] MEDS ORDERED: methylPREDNISolone SOD SUCCI 40 MG/ML 1 ML VIAL IV SCH (09:00)
[2018-12-10] MEDS ORDERED: PANTOPRAZOLE 40 MG TABLET PO SCH (09:00)
[2018-12-10 11:16] VITALS: PULSE 84
[2018-12-10 11:20] LABS: Basophils % (A) 0 %; Eosinophils # (A) 0.1 k/uL (0-0.7); Eosinophils % (A) 0 %; HCT 39.2 % (34.0-46.0); HGB 12.8 gm/dL (11.4-16.0); Lymphocytes # (A) 1.2 k/uL (1.0-4.8); Lymphocytes % (A) 9 %; MCH 29.5 pg (25.0-35.0); MCHC 32.6 g/dL (31.0-37.0); MCV 90.5 fL (80.0-100.0); Mean Platelet Volume 8.2; Monocytes # (A) 0.6 k/uL (0-1.0); Monocytes % (A) 4 %; Neutrophils # (A) 12.3 k/uL (1.3-7.7); Neutrophils % (A) 86 %; Platelet Count 249 k/uL (150-450); RBC 4.33 m/uL (3.80-5.40); RDW 13.6 % (11.5-15.5); WBC 14.3 k/uL (3.8-10.6)
--- NOTE | 2018-12-10 11:26 | P.PN ---
Subjective Progress Note Date: 12/10/18 Principal diagnosis: shortness of breath, acute exacerbation of asthma/COPD This is a 63-year-old female with history of severe asthma, multiple environmental ALLERGIES, patient had asthma since she was 12 years old. Patient is a current every day smoker, in spite of her underlying asthma. Her primary care physician managing her asthma is Dr. Beck. Patient does not follow up with a acls specialist regarding her asthma. She is also known to have history of obstructive sleep apnea syndrome, history of fibromyalgia, patient was at her daughter's house, and she started developing an episode of shortness of breath cough and wheezing. Couldn't get her rescue inhaler immediately, and her condition continued to deteriorate fast. Apparently the patient has been exposed to cats at her daughter's house, and may have been the major trigger factor for her pulmonary symptoms. EMS was called to the scene, and the patient was in severe respiratory distress upon their arrival. She was hypoxic and her O2 saturation was 60%. Attempted to intubate the patient on site, but the patient could not be intubated. Upon arrival to the ER, patient was intubated immediately, placed on mechanical ventilation. She was also placed on propofol and Versed. She had a very brief episode of A. fib with RVR shortly after she arrived to the ER, but that resolved and went to sinus rhythm. CT of the brain was nondiagnostic. Patient was placed on bronchodilators, steroids, and I was asked to see the patient on consultation. I evaluated the patient in the ICU, and she sounded fairly clear bilaterally. No crackles or rhonchi or wheezes were noted. Hence the patient was given a trial of pressure support of 8 and CPAP, discontinued her propofol, and patient tolerated the weaning well while I was at bedside. I reviewed her chest x-ray and was noted to be clear. Then pr oceeded to extubating the patient. She tolerated the extubation well. And she will be kept on steroids and bronchodilators. On 12/09/2018 patient seen in follow-up in the intensive care unit, she is awake and alert, in no acute distress, she was successfully extubated yesterday, today she is on room air, denies any dyspnea, cough, wheezing or congestion, no signs are stable, no acute events overnight, no fever or chills, currently in sinus rhythm, she did have an episode of A. fib on admission, cardiology is following. She remains on nebulized bronchodilators, Pulmicort, IV steroids, does not seem to have any significant chest congestion, nicotine patches on. no running IVs. Today's labs have been reviewed, and are basically unremarkable, white blood cell count is 12.4, hemoglobin is 12.3, sodium is 140, potassium is 4.7, chloride is 111, CO2 is 23, renal profile is within normal limits with BUN at 12 and creatinine 0.65. Today's chest x-ray showed chronic left basilar pleural pa renchymal change with trace left pleural effusion, no acute pulmonary process. On 12/10/2018 patient seen in follow-up on medical surgical floor. She is awake and alert, in no acute distress, lung sounds are clear to auscultation, no wheezing, no rhonchi, no cough or congestion, a lot of signs are stable, room air pulse ox is 95%, no fever or chills, no acute events overnight, no new chest x-ray, today's labs have been reviewed, blood blood cell count is 14.3, hemoglobin is 12.8. IV steroids were decreased down to 40 mg every 12 hours, can probably switch her over to prednisone. Patient is on breathing treatments, nicotine patches on Objective - Vital Signs Vital signs: Vital Signs Temp 97.9 F 12/10/18 04:45 Pulse 84 12/10/18 11:16 Resp 20 12/10/18 08:00 BP 109/51 12/10/18 04:45 Pulse Ox 97 12/10/18 07:29 Intake & Output 12/09/18 12/10/18 12/10/18 18:59 06:59 18:59 Intake Total 1130 500 Output Total 2 Balance 1128 500 Intake: Oral 1130 500 Output: Urine 2 Other: Voiding Method Toilet Toilet # Voids 1 1 # Bowel Movements 1 - Exam GENERAL EXAM: Alert, pleasant, 63-year-old white female, on room air, with a pulse ox of 96%, comfortable in no apparent distress. HEAD: Normocephalic/atraumatic. EYES: Normal reaction of pupils, equal size. Conjunctiva pink, sclera white. NOSE: Clear with pink turbinates. THROAT: No erythema or exudates. NECK: No masses, no JVD, no thyroid enlargement, no adenopathy. CHEST: No chest wall deformity. Symmetrical expansion. LUNGS: Equal air entry with no crackles, wheeze, rhonchi or dullness. CVS: Regular rate and rhythm, normal S1 and S2, no gallops, no murmurs, no rubs ABDOMEN: Soft, nontender. No hepatosplenomegaly, normal bowel sounds, no guarding or rigidity. EXTREMITIES: No clubbing, no edema, no cyanosis, 2+ pulses and upper and lower extremities. MUSCULOSKELETAL: Muscle strength and tone normal. SPINE: No scoliosis or deformity SKIN: No rashes CENTRAL NERVOUS SYSTEM: Alert and oriented -3. No focal deficits, tone is normal in all 4 extremities. PSYCHIATRIC: Alert and oriented -3. Appropriate affect. Intact judgment and insight. - Labs CBC & Chem 7: 12/10/18 10:41 12/09/18 04:54 Labs: Abnormal Lab Results - Last 24 Hours (Table) 12/09/18 12/09/18 12/09/18 Range/Units 12:17 17:15 21:13 WBC (3.8-10.6) k/uL Neutrophils # (1.3-7.7) k/uL POC Glucose (mg/dL) 161 H 178 H 176 H (75-99) mg/dL 12/10/18 12/10/18 Range/Units 07:09 10:41 WBC 14.3 H (3.8-10.6) k/uL Neutrophils # 12.3 H (1.3-7.7) k/uL POC Glucose (mg/dL) 135 H (75-99) mg/dL Assessment and Plan Plan: Assessment: 1 acute hypoxic respiratory failure secondary to acute exacerbation of moderate severe bronchial asthma. Requiring intubation and mechanical ventilation. 2 possible underlying component of COPD with acute exacerbation of COPD considering the patient's smoking history. 3 multiple environmental ALLERGIES 4 transient episode of A. fib with RVR, nonsustained, resolved on its own. Most likely related to her acute asthma exacerbation and hypoxic respiratory failure. Being evaluated by cardiology, no major workup is necessary. 5 tobacco dependence syndrome Plan: Patient is stable for discharge from pulmonary perspective, she can transition over to oral prednisone, colitis signs are stable, no acute events overnight, she is on room air, we'll see the patient follow-up in the office with Dr. Fitzpatrick, she can continue her Ventolin, she can finish the prednisone taper, she'll need to continue on Singulair, and abstain from smoking. I performed a history & physical examination of the patient and discussed their management with my nurse practitioner, Vicki Stephens. I reviewed the nurse practitioner's note and agree with the documented findings and plan of care. Lung sounds are positive for clear breath sounds. The findings and the impression was discussed with the patient. I attest to the documentation by the nurse practitioner. Time with Patient: Less than 30
[2018-12-10 11:28] LABS: African American GFR (CKD) >90 (>60 ml/min/1.73 sqM); Anion Gap 8 mmol/L; Blood Urea Nitrogen 17 mg/dL (7-17); Calcium 9.1 mg/dL (8.4-10.2); Carbon Dioxide 24 mmol/L (22-30); Chloride 109 mmol/L (98-107); Glucose 133 mg/dL (74-99); Sodium 141 mmol/L (137-145)
--- NOTE | 2018-12-11 00:31 | P.DS ---
Providers Date of admission: 12/07/18 23:50 Expected date of discharge: 12/10/18 Attending physician: Oleg Tomas Consults: 12/07/18 23:50 Consult Physician Urgent Consulting Provider: [facility] Consult Reason/Comments: new onset afib Do you want consulting provider notified?: Yes 12/08/18 00:08 Consult Physician Stat Consulting Provider: Kirk Acosta Consult Reason/Comments: AVDRF, acute asthma exacerbation Do you want consulting provider notified?: Already Contacted Primary care physician: Tyler Brown [facility] Course: Hospital course: This is a patient has a diagnosis of asthma since the age of 12 also smoker admitted with severe COPD exacerbation and acute respiratory failure. Patient had to be intubated. Also had a brief episode of atrial fibrillation. Doing much better by the time of discharge. Patient is counseled about smoking. Up and about. Consultation: Dr. Duncan from pulmonary On examination: VITAL SIGNS: 97.9, 85, 20, 109/51, 95% room air GENERAL APPEARANCE: Sitting up in bed, not in distress. HEENT: Normal external appearance of nose and ear. Oral cavity normal EYES: Pupils equal. Conjunctiva normal. NECK: JVD not raised. Mass not palpable. RESPIRATORY: Respiratory effort normal, decreased breath sounds. CARDIOVASCULAR: First and second sounds normal. No edema. INVESTIGATIONS, reviewed in the clinical context: White count 12.4, hemoglobin 12.3, potassium 4.7, creatinine 0.65 Accu-Cheks 161, 178 2-D echo-EF 60-65% CT brain negative Final diagnosis: -Acute asthma/COPD overlap syndrome, exacerbation in a current smoker -Chronic nicotine dependence patient active cigarette smoker -Hyperglycemia secondary to steroids -Obstructive sleep apnea -Anxiety not otherwise specified Disposition: Home Patient Condition at Discharge: Stable Plan - Discharge Summary Discharge Rx Participant: Yes New Discharge Prescriptions: New Ipratropium [place] [Atrovent Hfa] 2 puff INHALATION QID #1 inhaler Nicotine 21Mg/24Hr Patch [Habitrol] 1 patch TRANSDERM DAILY #14 patch Melatonin 3 mg PO HS PRN tablet PRN Reason: Insomnia Montelukast [Singulair] 10 mg PO HS #30 tab predniSONE 10 mg PO DAILY #30 tab Continue Albuterol Nebulized [Ventolin Nebulized] 2.5 mg INHALATION RT-Q4H PRN PRN Reason: ALLERGIES Albuterol Inhaler [Ventolin Hfa Inhaler] 1 - 2 puff INHALATION RT-Q6H PRN PRN Reason: RESCUE INHALER ALPRAZolam [Xanax] 0.5 mg PO BID Gabapentin [Neurontin] 100 mg PO TID Cyclobenzaprine [Flexeril] 5 mg PO TID PRN PRN Reason: Spasms Discontinued Ketorolac [Toradol] 10 mg PO Q6HR PRN PRN Reason: Pain Discharge Medication List ALPRAZolam [Xanax] 0.5 mg PO BID 02/23/14 [History] Albuterol Inhaler [Ventolin Hfa Inhaler] 1 - 2 puff INHALATION RT-Q6H PRN 02/23/14 [History] Albuterol Nebulized [Ventolin Nebulized] 2.5 mg INHALATION RT-Q4H PRN 02/23/14 [History] Cyclobenzaprine [Flexeril] 5 mg PO TID PRN 12/07/18 [History] Gabapentin [Neurontin] 100 mg PO TID 12/07/18 [History] Ipratropium [place] [Atrovent Hfa] 2 puff INHALATION QID #1 inhaler 12/10/18 [Rx] Melatonin 3 mg PO HS PRN tablet 12/10/18 [Rx] Montelukast [Singulair] 10 mg PO HS #30 tab 12/10/18 [Rx] Nicotine 21Mg/24Hr Patch [Habitrol] 1 patch TRANSDERM DAILY #14 patch 12/10/18 [Rx] predniSONE 10 mg PO DAILY #30 tab 12/10/18 [Rx] Follow up Appointment(s)/Referral(s): Kirk Acosta MD [STAFF PHYSICIAN] - 1 Week (Office closed for lunch, please call to schedule. ) Tyler Beck MD [Primary Care Provider] - 3 Days (Office closed for lunch, please call to schedule. ) Patient Instructions/Handouts: Asthma (DC) Activity/Diet/Wound Care/Special Instructions: NO smoking, cessation information provided. Regular diet Activity as tolerated. Discharge Disposition: HOME SELF-CARE
== END 2018-12-10 13:55 | disposition home or self-care (01) | DRG 208 ==
LOC: EC 21:54 → 2SICU 23:50 → 4MS4W 12-09 10:16
PROVIDERS: ADMIT Internal Medicine; ATTEND Hospitalist
PROC: 5A1935Z Respiratory Ventilation, Less than 24 Consecutive Hours (ICD-10-PCS; principal; 2018-12-07)
PROC: 0BH17EZ Insertion of Endotracheal Airway into Trachea, Via Natural or Artificial Opening (ICD-10-PCS; 2018-12-07)
DX: J45.901 Unspecified asthma with (acute) exacerbation (principal); J96.01 Acute respiratory failure with hypoxia; J44.1 Chronic obstructive pulmonary disease with (acute) exacerbation; F41.9 Anxiety disorder, unspecified; R73.9 Hyperglycemia, unspecified; M35.00 Sjogren syndrome, unspecified; M79.7 Fibromyalgia; G47.33 Obstructive sleep apnea (adult) (pediatric); F17.210 Nicotine dependence, cigarettes, uncomplicated; Z71.6 Tobacco abuse counseling; Z79.899 Other long term (current) drug therapy; Z86.69 Personal history of other diseases of the nervous system and sense organs; Z99.89 Dependence on other enabling machines and devices; Z87.442 Personal history of urinary calculi; Z86.14 Personal history of Methicillin resistant Staphylococcus aureus infection; Z90.710 Acquired absence of both cervix and uterus; Z86.59 Personal history of other mental and behavioral disorders; Z98.890 Other specified postprocedural states; Z91.013 Allergy to seafood; Z88.8 Allergy status to other drugs, medicaments and biological substances; Z91.048 Other nonmedicinal substance allergy status; Z80.9 Family history of malignant neoplasm, unspecified; Z83.2 Family history of diseases of the blood and blood-forming organs and certain disorders involving the immune mechanism; I48.0 Paroxysmal atrial fibrillation; T38.0X5A Adverse effect of glucocorticoids and synthetic analogues, initial encounter; D72.829 Elevated white blood cell count, unspecified
CPT/HCPCS: 31500; 36415; 36600; 70450; 71045; 80048; 80053; 81003; 82805; 83036; 83605; 83735; 83880; 84484; 85025; 85379; 85610; 85730; 93005; 93306; 94002; 94640; 94760; 96365; 96366; 96367; 96375; 99291

== ENCOUNTER → 2019-03-21 | Outpatient (CLI) | payer MEDICARE, OTHER ==
--- NOTE | 2019-03-21 16:13 | US ---
EXAMINATION TYPE: US kidneys/renal and bladder DATE OF EXAM: 03/21/2019 COMPARISON: CT 2009 CLINICAL HISTORY: N20.0 Kidney stone. Pt states generalized flank pain and h/o kidney stones EXAM MEASUREMENTS: Right Kidney: 12.1 x 4.2 x 4.2 cm Left Kidney: 11.3 x 4.3 x 3.8 cm Right Kidney: Appeared wnl Left Kidney: Appeared wnl Bladder: wnl Bilateral Jets seen: Yes There is no evidence for hydronephrosis at this point in time. No nephrolithiasis is seen. No parish s are identified. The urinary bladder is satisfactorily distended. Bilateral ureteral jets are seen . When scanning right kidney adjacent liver is heterogeneously hyperechoic system with diffuse fatty in filtration. IMPRESSION: No hydronephrosis or renal calculi identified bilaterally.
== END | disposition home or self-care (01) ==
LOC: RADUSWWP 15:41
PROVIDERS: ATTEND Family Medicine
DX: N20.0 Calculus of kidney (principal)
CPT/HCPCS: 76770

== ENCOUNTER 2019-04-17 14:31 | Emergency (ER) | payer MEDICARE, OTHER ==
[2019-04-17 14:40] VITALS: TEMP 98.7
[2019-04-17] MEDS ORDERED: SODIUM CHLORIDE 0.9% 1,000 ML IV STA (15:00)
[2019-04-17 15:31] LABS: Basophils # (A) 0.1 k/uL (0-0.2); Basophils % (A) 1 %; Eosinophils # (A) 0.3 k/uL (0-0.7); Eosinophils % (A) 4 %; HCT 44.1 % (34.0-46.0); HGB 14.7 gm/dL (11.4-16.0); Lymphocytes # (A) 2.3 k/uL (1.0-4.8); Lymphocytes % (A) 36 %; MCH 29.1 pg (25.0-35.0); MCHC 33.3 g/dL (31.0-37.0); MCV 87.5 fL (80.0-100.0); Mean Platelet Volume 8.9; Monocytes # (A) 0.3 k/uL (0-1.0); Monocytes % (A) 5 %; Neutrophils # (A) 3.3 k/uL (1.3-7.7); Neutrophils % (A) 52 %; Platelet Count 242 k/uL (150-450); RBC 5.05 m/uL (3.80-5.40); RDW 12.6 % (11.5-15.5); WBC 6.4 k/uL (3.8-10.6)
--- NOTE | 2019-04-17 15:43 | XR ---
EXAMINATION TYPE: XR chest 2V DATE OF EXAM: 04/17/2019 COMPARISON: 12/09/2018 HISTORY: Altered mental status TECHNIQUE: Frontal and lateral views of the chest are obtained. FINDINGS: There is no focal air space opacity, pleural effusion, or pneumothorax seen. The cardiac silhouette size is within normal limits. The osseous structures are intact. Mild multilevel degener ative change of the spine. IMPRESSION: No acute cardiopulmonary process.
--- NOTE | 2019-04-17 15:47 | CT ---
EXAMINATION TYPE: CT brain wo con DATE OF EXAM: 04/17/2019 COMPARISON: 12/08/2018 HISTORY: memory loss, possible seizure CT DLP: 1098 mGycm Automated exposure control for dose reduction was used. TECHNIQUE: CT scan of the head is performed without contrast. FINDINGS: There is no acute intracranial hemorrhage or midline shift identified. There is diffuse v entricular and sulcal prominence consistent with diffuse age-related cerebral atrophy. There is low- attenuation in the periventricular white matter consistent with chronic small vessel ischemic change. The globes are intact and the visualized sinuses are clear. IMPRESSION: No acute intracranial hemorrhage or midline shift. There is diffuse age-related cerebra l atrophy and chronic small vessel ischemic change noted.
--- NOTE | 2019-04-17 15:50 | ED ---
General Adult HPI - General Chief complaint: Neuro Symptoms/Deficit Stated complaint: headache/poss seizure Time Seen by Provider: 04/17/19 14:52 Source: patient Mode of arrival: ambulatory Limitations: altered mental status - History of Present Illness Initial comments: Dictation was produced using [employer] dictation software. please excuse any gram matical, word or spelling errors. Chief Complaint: 63-year-old female presents with family member for memory deficits. History of Present Illness: Patient's 63-year-old female she presents today by family member for memory deficits. Patient was noted to have these issues noted by family member approximately 2 hours prior to arrival. However it is unclear when patient became symptomatically. Patient adamantly believes that her forgetfulness has been ongoing for the last couple days. Daughter at bedside reports that patient is acting "weird" and noted to have difficulties with s hort-term memory. She does however somehow able to retrieve the answer he just takes her more time than usual. Patient denies any numbness and paresthesias to the arms or legs. Denies any pain complaints. The ROS documented in this emergency department record has been reviewed and confirmed by me. Those systems with pertinent positive or negative responses have been documented in the HPI. All other systems are other negative and/or noncontributory. PHYSICAL EXAM: General Impression: Alert and oriented x3, not in acute distress HEENT: Normocephalic atraumatic, extra-ocular movements intact, pupils equal and reactive to light bilaterally, mucous membranes moist. Cardiovascular: Heart regular rate and rhythm, S1&S2 audible, no murmurs, rubs or gallops Chest: Lungs clear to auscultation bilaterally, no rhonchi, no wheeze, no rales Abdomen: Bowel sounds present, abdomen soft, non-tender, non-distended, no organomegaly Musculoskeletal: Pulses present and equal in all extremities, no peripheral edema Motor: no focal deficits noted Neurological: CN II-XII grossly intact, no focal motor or sensory deficits noted, NIH of 0, patient able to answer higher questions including family m embers mental name, birthdate and weight. Patient takes several seconds to answer what month and year it is however does eventually comes up with the right answer Skin: Intact with no visualized rashes Psych: Normal affect and mood ED course: 63-year-old female presents with member difficulties. Signs upon arrival are within acceptable limits. Medications were reviewed. Patient is on a tricyclic antidepressant. Family reports that she's been on this medication recently for the last month. Laboratory evaluation obtained. CBC, coag panel, metabolic panel is unremarkable. Urinalysis is negative. Toxicology is positive for benzodiazepines. Computed tomography scan of the brain shows no acute processes. There is however diffuse age-related cerebral atrophy and small chronic vessel ischemic changes. Chest x-ray is negative. Patient is reevaluated bedside. She is notified of these results. She feels as though she is having a stroke. She is forgetful at bedside. Family is concerned about patient's well-being and report that this is significantly abnormal. Given patient's clinical presentation is no concern at this point for serious life- threatening illness however I do believe she would benefit from neurology evaluation. Patient case discussed with Dr. Kerrie Miranda. He is willing to accept. ER transfer. Patient received aspirin for possibility of CVA. Patient understandable agreeable with disposition. EKG interpretation: Ventricular rate 87, normal sinus rhythm,. Interval 124, Q 70, QTc 462. No IL prolongation, no QTC prolongation, no ST or T-wave changes noted. Overall, this EKG is unremarkable - Related Data Home Medications Medication Instructions Recorded Confirmed ALPRAZolam [Xanax] 0.5 mg PO BID 02/23/14 12/07/18 Albuterol Inhaler [Ventolin Hfa 1 - 2 puff INHALATION RT-Q6H PRN 02/23/14 12/07/18 Inhaler] Albuterol Nebulized [Ventolin 2.5 mg INHALATION RT-Q4H PRN 02/23/14 12/07/18 Nebulized] Cyclobenzaprine [Flexeril] 5 mg PO TID PRN 12/07/18 12/07/18 Gabapentin [Neurontin] 100 mg PO TID 12/07/18 12/07/18 Previous Rx's Medication Instructions Recorded Ipratropium Sidell [Atrovent Hfa] 2 puff INHALATION QID #1 inhaler 12/10/18 Melatonin 3 mg PO HS PRN tablet 12/10/18 Montelukast [Singulair] 10 mg PO HS #30 tab 12/10/18 Nicotine 21Mg/24Hr Patch [Habitrol] 1 patch TRANSDERM DAILY #14 patch 12/10/18 predniSONE 10 mg PO DAILY #30 tab 12/10/18 Allergies Allergy/AdvReac Type Severity Reaction Status Date / Time bupropion HCl Allergy Rash/Hives Verified 12/07/18 23:09 [From Wellbutrin] shellfish derived Allergy Anaphylaxis Verified 12/07/18 23:09 Review of Systems ROS Statement: Those systems with pertinent positive or pertinent negative responses have been documented in the HPI. ROS Other: All systems not noted in ROS Statement are negative. Past Medical History Past Medical History: Asthma, COPD, Fibromyalgia, Sleep Apnea/CPAP/BIPAP Additional Past Medical History / Comment(s): MANY ENVIRONMENTAL ALLERGIES. HX MIGRAINES. HX KIDNEY AND BLADDER STONES History of Any Multi-Drug Resistant Organisms: None Reported, MRSA Date of last positivie culture/infection: 03/16/2013 MDRO Source:: THIRD FINGER LEFT HAND Past Surgical History: Heart Catheterization, Hysterectomy, Orthopedic Surgery Additional Past Surgical History / Comment(s): RT ROTATOR CUFF REPAIR. COLONOSCOPY. RHINOPLASTY Past Anesthesia/Blood Transfusion Reactions: Motion Sickness, Postoperative Nausea & Vomiting (PONV) Past Psychological History: Anxiety, Depression Smoking Status: Current every day smoker Past Alcohol Use History: Heavy Past Drug Use History: None Reported, Marijuana - Past Family History Mother Family Medical History: Cancer, Deep Vein Thrombosis (DVT) General Exam Limitations: altered mental status Course Vital Signs 04/17/19 14:35 Temperature 98.7 F Pulse Rate 88 Respiratory 20 Rate Blood Pressure 164/86 O2 Sat by Pulse 95 Oximetry Medical Decision Making - Lab Data Result diagrams: 04/17/19 15:10 04/17/19 15:10 Lab Results 04/17/19 04/17/19 04/17/19 Range/Units 15:10 15:10 15:10 WBC 6.4 (3.8-10.6) k/uL RBC 5.05 (3.80-5.40) m/uL Hgb 14.7 (11.4-16.0) gm/dL Hct 44.1 (34.0-46.0) % MCV 87.5 (80.0-100.0) fL MCH 29.1 (25.0-35.0) pg MCHC 33.3 (31.0-37.0) g/dL RDW 12.6 (11.5-15.5) % Plt Count 242 (150-450) k/uL Neutrophils % 52 % Lymphocytes % 36 % Monocytes % 5 % Eosinophils % 4 % Basophils % 1 % Neutrophils # 3.3 (1.3-7.7) k/uL Lymphocytes # 2.3 (1.0-4.8) k/uL Monocytes # 0.3 (0-1.0) k/uL Eosinophils # 0.3 (0-0.7) k/uL Basophils # 0.1 (0-0.2) k/uL PT 10.6 (9.0-12.0) sec INR 1.0 (<1.2) APTT 24.4 (22.0-30.0) sec Sodium 141 (137-145) mmol/L Potassium 4.4 (3.5-5.1) mmol/L Chloride 107 (98-107) mmol/L Carbon Dioxide 22 (22-30) mmol/L Anion Gap 12 mmol/L BUN 13 (7-17) mg/dL Creatinine 0.71 (0.52-1.04) mg/dL Est GFR (CKD-EPI)AfAm >90 (>60 ml/min/1.73 sqM) Est GFR (CKD-EPI)NonAf >90 (>60 ml/min/1.73 sqM) Glucose 102 H (74-99) mg/dL Calcium 10.2 (8.4-10.2) mg/dL Total Bilirubin 0.8 (0.2-1.3) mg/dL AST 58 H (14-36) U/L ALT 82 H (4-34) U/L Alkaline Phosphatase 90 (38-126) U/L Troponin I (0.000-0.034) ng/mL Total Protein 7.5 (6.3-8.2) g/dL Albumin 4.8 (3.5-5.0) g/dL Urine Color Urine Appearance (Clear) Urine pH (5.0-8.0) Ur Specific Clare (1.001-1.035) Urine Protein (Negative) Urine Glucose (UA) (Negative) Urine Ketones (Negative) Urine Blood (Negative) Urine Nitrite (Negative) Urine Bilirubin (Negative) Urine Urobilinogen (<2.0) mg/dL Ur Leukocyte Esterase (Negative) Urine Opiates Screen (NotDetected) Ur Oxycodone Screen (NotDetected) Urine Methadone Screen (NotDetected) Ur Propoxyphene Screen (NotDetected) Ur Barbiturates Screen (NotDetected) U Tricyclic Antidepress (NotDetected) Ur Phencyclidine Scrn (NotDetected) Ur Amphetamines Screen (NotDetected) U Methamphetamines Scrn (NotDetected) U Benzodiazepines Scrn (NotDetected) Urine Cocaine Screen (NotDetected) U Marijuana (THC) Screen (NotDetected) 04/17/19 04/17/19 Range/Units 15:10 15:13 WBC (3.8-10.6) k/uL RBC (3.80-5.40) m/uL Hgb (11.4-16.0) gm/dL Hct (34.0-46.0) % MCV (80.0-100.0) fL MCH (25.0-35.0) pg MCHC (31.0-37.0) g/dL RDW (11.5-15.5) % Plt Count (150-450) k/uL Neutrophils % % Lymphocytes % % Monocytes % % Eosinophils % % Basophils % % Neutrophils # (1.3-7.7) k/uL Lymphocytes # (1.0-4.8) k/uL Monocytes # (0-1.0) k/uL Eosinophils # (0-0.7) k/uL Basophils # (0-0.2) k/uL PT (9.0-12.0) sec INR (<1.2) APTT (22.0-30.0) sec Sodium (137-145) mmol/L Potassium (3.5-5.1) mmol/L Chloride (98-107) mmol/L Carbon Dioxide (22-30) mmol/L Anion Gap mmol/L BUN (7-17) mg/dL Creatinine (0.52-1.04) mg/dL Est GFR (CKD-EPI)AfAm (>60 ml/min/1.73 sqM) Est GFR (CKD-EPI)NonAf (>60 ml/min/1.73 sqM) Glucose (74-99) mg/dL Calcium (8.4-10.2) mg/dL Total Bilirubin (0.2-1.3) mg/dL AST (14-36) U/L ALT (4-34) U/L Alkaline Phosphatase (38-126) U/L Troponin I <0.012 (0.000-0.034) ng/mL Total Protein (6.3-8.2) g/dL Albumin (3.5-5.0) g/dL Urine Color Light Yellow Urine Appearance Clear (Clear) Urine pH 6.5 (5.0-8.0) Ur Specific Clare 1.003 (1.001-1.035) Urine Protein Negative (Negative) Urine Glucose (UA) Negative (Negative) Urine Ketones Negative (Negative) Urine Blood Negative (Negative) Urine Nitrite Negative (Negative) Urine Bilirubin Negative (Negative) Urine Urobilinogen <2.0 (<2.0) mg/dL Ur Leukocyte Esterase Negative (Negative) Urine Opiates Screen Not Detected (NotDetected) Ur Oxycodone Screen Not Detected (NotDetected) Urine Methadone Screen Not Detected (NotDetected) Ur Propoxyphene Screen Not Detected (NotDetected) Ur Barbiturates Screen Not Detected (NotDetected) U Tricyclic Antidepress Not Detected (NotDetected) Ur Phencyclidine Scrn Not Detected (NotDetected) Ur Amphetamines Screen Not Detected (NotDetected) U Methamphetamines Scrn Not Detected (NotDetected) U Benzodiazepines Scrn Detected H (NotDetected) Urine Cocaine Screen Not Detected (NotDetected) U Marijuana (THC) Screen Not Detected (NotDetected) Disposition Clinical Impression: Altered mental status Disposition: OTHER INSTITUTION NOT DEFINED Condition: Fair Referrals: Tyler Beck MD [Primary Care Provider] - 1-2 days Time of Disposition: 17:00 - Out of Hospital Transfer - Req. Specs Out of Hospital Transfer - Requested Specifics: Other Emergency Center ([facility])
[2019-04-17 15:53] LABS: Appearance,Urine Clear (Clear); Bilirubin,Urine Negative (Negative); Blood,Urine Negative (Negative); Color,Urine Light Yellow; Glucose,Urine (UA) Negative (Negative); Ketones,Urine Negative (Negative); Leukocyte Esterase,Urine Negative (Negative); Nitrite,Urine Negative (Negative); PH, Urine 6.5 (5.0-8.0); Protein,Urine Negative (Negative); Specific Gravity,Urine 1.003 (1.001-1.035); Urobilinogen,Urine <2.0 mg/dL (<2.0)
[2019-04-17 16:00] LABS: Partial Thromboplastin Time 24.4 sec (22.0-30.0); Prothrombin Time 10.6 sec (9.0-12.0)
[2019-04-17 16:08] LABS: ALT 82 U/L (4-34); AST 58 U/L (14-36); African American GFR (CKD) >90 (>60 ml/min/1.73 sqM); Albumin 4.8 g/dL (3.5-5.0); Alkaline Phosphatase 90 U/L (38-126); Anion Gap 12 mmol/L; Blood Urea Nitrogen 13 mg/dL (7-17); Calcium 10.2 mg/dL (8.4-10.2); Carbon Dioxide 22 mmol/L (22-30); Chloride 107 mmol/L (98-107); Glucose 102 mg/dL (74-99); Non-African American GFR(CKD) >90 (>60 ml/min/1.73 sqM); Potassium 4.4 mmol/L (3.5-5.1); Sodium 141 mmol/L (137-145); Total Bilirubin 0.8 mg/dL (0.2-1.3); Total Protein 7.5 g/dL (6.3-8.2)
[2019-04-17 16:22] LABS: Amphetamine Screen,Urine Not Detected (NotDetected); Barbiturate Screen,Urine Not Detected (NotDetected); Benzodiazepines Screen,Urine Detected (NotDetected); Cocaine Screen,Urine Not Detected (NotDetected); Methadone Screen, Urine Not Detected (NotDetected); Opiate Screen,Urine Not Detected (NotDetected); Oxycodone Screen, Urine Not Detected (NotDetected); Phencyclidine Screen,Urine Not Detected (NotDetected); Tricyclic Antidepressant,Urine Not Detected (NotDetected); Urn Cannabinoid Scrn Not Detected (NotDetected)
[2019-04-17] MEDS ORDERED: ASPIRIN 81 MG PO STA (16:59)
[2019-04-17 17:13] VITALS: BP 177/89; PULSE 87; RESP 16
== END 2019-04-17 18:06 | disposition short-term general hospital (02) ==
LOC: EC 14:31
DX: R41.82 Altered mental status, unspecified (principal); G31.9 Degenerative disease of nervous system, unspecified; I67.82 Cerebral ischemia; J44.9 Chronic obstructive pulmonary disease, unspecified; M79.7 Fibromyalgia; G47.30 Sleep apnea, unspecified; F32.9 Major depressive disorder, single episode, unspecified; F41.9 Anxiety disorder, unspecified; F17.200 Nicotine dependence, unspecified, uncomplicated; Z88.8 Allergy status to other drugs, medicaments and biological substances; Z91.013 Allergy to seafood; Z79.899 Other long term (current) drug therapy; Z86.14 Personal history of Methicillin resistant Staphylococcus aureus infection; Z86.69 Personal history of other diseases of the nervous system and sense organs; Z99.89 Dependence on other enabling machines and devices
CPT/HCPCS: 36415; 70450; 71046; 80053; 80306; 81003; 84484; 85025; 85610; 85730; 93005; 96360; 99285

== ENCOUNTER → 2019-11-24 | Outpatient (CLI) | payer MEDICARE, OTHER ==
--- NOTE | 2019-11-24 15:17 | CT ---
EXAMINATION TYPE: CT abdomen pelvis w con DATE OF EXAM: 11/24/2019 COMPARISON: CT abdomen pelvis 08/15/2009. HISTORY: Diverticulitis of the intestines. Stomach pain and left lower quadrant pain with radiation i nto groin for one month. CT DLP: 904.8 mGycm Automated exposure control for dose reduction was used. TECHNIQUE: Helical acquisition of images was performed from the lung bases through the pelvis. CONTRAST: Performed with Oral Contrast and with IV Contrast, patient injected with 100 mL of Isovue 300. FINDINGS: LUNG BASES: Normal. LIVER: Mildly fatty liver. No focal lesion. BILIARY SYSTEM: Normal. PANCREAS: Normal. SPLEEN: Normal. ADRENALS: Normal. KIDNEYS: Normal. BOWEL: No evidence of bowel obstruction. Sigmoid colon and descending colon diverticulosis. No acute diverticulitis. PERITONEUM: No free air is visualized. No free fluid. ADENOPATHY: No lymphadenopathy. PELVIS: Normal urinary bladder. Status post hysterectomy. VASCULATURE: No abdominal aortic aneurysm. MUSCULOSKELETAL: Degenerative changes of the spine. IMPRESSION: 1. No acute findings to explain patient's abdominal pain. 2. Diverticulosis. No acute diverticulitis. 3. Mildly fatty liver.
== END | disposition home or self-care (01) ==
LOC: RADCTMAIN 09:26
PROVIDERS: ATTEND Family Medicine
DX: K57.90 Diverticulosis of intestine, part unspecified, without perforation or abscess without bleeding (principal); K76.0 Fatty (change of) liver, not elsewhere classified
CPT/HCPCS: 74177; Q9967

== ENCOUNTER 2020-01-22 15:12 | Emergency (ER) | payer MEDICARE, OTHER ==
[2020-01-22 15:21] VITALS: BP 131/69; PULSE 91; RESP 18; TEMP 99.2
--- NOTE | 2020-01-22 16:02 | ED ---
ENT HPI - General Chief complaint: ENT Stated complaint: Ear Bleeding Time Seen by Provider: 01/22/20 15:30 Source: patient Mode of arrival: ambulatory Limitations: no limitations - History of Present Illness Initial comments: Patient is a 64-year-old female presenting to the emergency Department with complaints of left ear pain and bloody drainage from the ear for the past 24 hours. Patient states she has been dealing with a sinus cold, cough and congestion for the past 5-6 days. She states yesterday she noticed some mild ear discomfort and then she was itching her ear with a Q-tip when she noticed blood on there. Patient states she woke up this morning and noticed blood on her pillow. She denies any fever, chills. She denies any fall or trauma to her ear. Yesterday she noticed hearing was decreased from her left ear but today it seems to be normal. She is no further complaints at this time. Upon arrival to the ER her vital signs are stable. - Related Data Home Medications Medication Instructions Recorded Confirmed ALPRAZolam [Xanax] 0.5 mg PO BID PRN 02/23/14 04/17/19 Albuterol Inhaler (Mhu) [Ventolin 1 - 2 puff INHALATION RT-Q6H PRN 02/23/14 04/17/19 Hfa Inhaler (Mhu)] Cyclobenzaprine [Flexeril] 5 mg PO TID PRN 12/07/18 04/17/19 Gabapentin [Neurontin] 100 mg PO TID 12/07/18 04/17/19 Alendronate Sodium 70 mg PO Q7D 04/17/19 04/17/19 Amitriptyline HCl [Elavil] 10 mg PO HS 04/17/19 04/17/19 Fluticasone Propionate [Flovent 2 puff INHALATION RT-BID 04/17/19 04/17/19 Hfa 220 mcg] Loratadine [Claritin] 10 mg PO DAILY 04/17/19 04/17/19 Previous Rx's Medication Instructions Recorded Montelukast [Singulair] 10 mg PO HS #30 tab 12/10/18 Amoxicillin 500 mg PO BID 5 Days #10 capsule 01/22/20 Allergies Allergy/AdvReac Type Severity Reaction Status Date / Time bupropion HCl Allergy Rash/Hives Verified 10/08/20 15:20 [From Wellbutrin] shellfish derived Allergy Anaphylaxis Verified 01/22/20 15:20 Review of Systems ROS Statement: Those systems with pertinent positive or pertinent negative responses have been documented in the HPI. ROS Other: All systems not noted in ROS Statement are negative. Past Medical History Past Medical History: Asthma, COPD, Fibromyalgia, Sleep Apnea/CPAP/BIPAP Additional Past Medical History / Comment(s): MANY ENVIRONMENTAL ALLERGIES. HX MIGRAINES. HX KIDNEY AND BLADDER STONES History of Any Multi-Drug Resistant Organisms: None Reported, MRSA Date of last positivie culture/infection: 03/16/2013 MDRO Source:: THIRD FINGER LEFT HAND Past Surgical History: Heart Catheterization, Hysterectomy, Orthopedic Surgery Additional Past Surgical History / Comment(s): RT ROTATOR CUFF REPAIR. COLONOSCOPY. RHINOPLASTY Past Anesthesia/Blood Transfusion Reactions: Motion Sickness, Postoperative Nausea & Vomiting (PONV) Past Psychological History: Anxiety, Depression Smoking Status: Former smoker Past Alcohol Use History: Occasional Past Drug Use History: Marijuana - Past Family History Mother Family Medical History: Cancer, Deep Vein Thrombosis (DVT) General Exam - General Exam Comments Initial Comments: GENERAL: Patient is well-developed and well-nourished. Patient is nontoxic and in no acute distress. HEAD: Atraumatic, normocephalic. EYES: Pupils equal round and reactive to light, extraocular movements intact, sclera anicteric, conjunctiva are normal. Eyelids were unremarkable. ENT: Right TM is normal, left EAC has dried blood in the canal, left TM appears to have a small perforation., nares patent, oropharynx clear without exudates. Moist mucous membranes. NECK: Normal range of motion, supple without lymphadenopathy or JVD. LUNGS: Unlabored respirations. Breath sounds clear to auscultation bilaterally and equal. No wheezes rales or rhonchi. HEART: Regular rate and rhythm without murmurs, rubs or gallops. ABDOMEN: Soft, nontender, normoactive bowel sounds. No guarding, no rebound. No masses appreciated. : Deferred MUSCULOSKELETAL: Normal extremities with adequate strength and normal range of motion, no pitting or edema. No clubbing or cyanosis. NEUROLOGICAL: Patient is alert and oriented x 3. Motor and sensory are also intact. Cranial nerves II through XII grossly intact. Symmetrical smile. Normal speech, normal gait. PSYCH: Normal mood, normal affect. SKIN: Warm, Dry, normal turgor, no rashes or lesions noted. Limitations: no limitations Course Vital Signs 01/22/20 15:18 Temperature 99.2 F Pulse Rate 91 Respiratory 18 Rate Blood Pressure 131/69 O2 Sat by Pulse 96 Oximetry Medical Decision Making - Medical Decision Making Patient is 64-year-old female here for left ear pain and bloody drainage since yesterday. She has been dealing with a sinus and chest congestion. Her vital signs are stable. Her exam reveals a small left TM perforation. Given patient's history, we'll start patient on oral antibiotics as perforation is most likely due to bacteria. I did discuss with her water precautions. She does need to follow up with her PCP. Patient is in agreement with this plan of care. She is stable for discharge. Return parameters were discussed with the patient and she verbalized understanding. Disposition Clinical Impression: Perforation of left tympanic membrane, Left ear pain Disposition: HOME SELF-CARE Condition: Stable Instructions (If sedation given, give patient instructions): Ruptured Eardrum (ED) Additional Instructions: Please return to the Emergency Department if symptoms worsen or any other concerns. No swimming, use cotton ball when taking a shower. No foreign objects into the left ear. Follow up with PCP as discussed. Prescriptions: Amoxicillin 500 mg PO BID 5 Days #10 capsule Is patient prescribed a controlled substance at d/c from ED?: No Referrals: Tyler Beck MD [Primary Care Provider] - 1-2 days
== END 2020-01-22 16:10 | disposition home or self-care (01) ==
LOC: EC 15:12
DX: H72.92 Unspecified perforation of tympanic membrane, left ear (principal); R09.89 Other specified symptoms and signs involving the circulatory and respiratory systems; R09.81 Nasal congestion; J44.9 Chronic obstructive pulmonary disease, unspecified; M79.7 Fibromyalgia; G47.30 Sleep apnea, unspecified; F41.9 Anxiety disorder, unspecified; F32.9 Major depressive disorder, single episode, unspecified; G43.909 Migraine, unspecified, not intractable, without status migrainosus; Z79.83 Long term (current) use of bisphosphonates; Z79.899 Other long term (current) drug therapy; Z79.51 Long term (current) use of inhaled steroids; Z91.013 Allergy to seafood; Z88.8 Allergy status to other drugs, medicaments and biological substances; Z99.89 Dependence on other enabling machines and devices; Z87.891 Personal history of nicotine dependence; Z86.14 Personal history of Methicillin resistant Staphylococcus aureus infection
CPT/HCPCS: 99282

== ENCOUNTER → 2021-09-14 | Outpatient (CLI) | payer MEDICARE, OTHER ==
--- NOTE | 2021-09-15 06:42 | US ---
EXAMINATION TYPE: US thyroid st tissue head/neck DATE OF EXAM: 09/14/2021 COMPARISON: MRI cervical spine 2012 CLINICAL HISTORY: E05.90 THYROTOXICOSIS, UNSP WITHOUT THYROTOXIC CRI. GLAND SIZE: Right Lobe: 5.0 x 1.7 x 1.5 cm Overall Parenchyma: heterogenous Left Lobe: 4.6 x 1.5 x 1.4 cm Overall Parenchyma: heterogeneous Isthmus Thickness: 0.2 cm NODULES RIGHT: # of nodules measured on right: 0 LEFT: # of nodules measured on left: 0 ISTHMUS: # of nodules measured in the isthmus: 0 Bilateral neck scanned, no evidence of lymphadenopathy. Markedly heterogeneous normal-sized thyroid without discrete nodule. IMPRESSION: As above
== END | disposition home or self-care (01) ==
LOC: RADUSWWP 16:59
PROVIDERS: ATTEND Family Medicine
DX: E05.90 Thyrotoxicosis, unspecified without thyrotoxic crisis or storm (principal)
CPT/HCPCS: 76536

== ENCOUNTER → 2021-10-10 | Outpatient (CLI) | payer MEDICARE, OTHER ==
--- NOTE | 2021-10-10 10:46 | CTL ---
EXAMINATION TYPE: CT Low Dose Lung DATE OF EXAM ORDERED: 10/10/2021 HISTORY: Nicotine dependence. Lung cancer screening CT DLP: 84.[address] CTDI: 2.3 mGy Automated exposure control for dose reduction was used. SCREENING VISIT: Baseline COMPARISON: No previous CT scan is available for comparison. TECHNIQUE: Low dose computed tomography scan was performed through the chest at 1 mm thick sections a nd reconstructed images in multiple planes at 1 mm and [address] DIAGNOSTIC QUALITY: Satisfactory FINDINGS: LUNG NODULES: None. LUNGS: COPD: Severity: Mild Fibrosis: Severity: None Lymph nodes: No pathologically enlarged lymph nodes. Other findings: Scattered segments of bronchial wall thickening suggestive of chronic bronchitis. Min imal left basal pulmonary atelectasis. Linear filling defects seen within the left main bronchus, lik alecia representing intraluminal secretions. RIGHT PLEURAL SPACE: Effusion: None Calcification: None Thickening: None Pneumothorax: None LEFT PLEURAL SPACE: Effusion: None Calcification: None Thickening: None Pneumothorax: None HEART: Heart Size: Normal Coronary Calcification: None Pericardial Effusion: None OTHER FINDINGS: Upper abdomen: None Bony thorax: No aggressive bone lesion. Supraclavicular region: None Other: Scattered arterial atherosclerotic calcifications. IMPRESSION: No definite lung nodule or suspicious lung lesion. Incidental findings as described above . CT LUNG RAD AND CT CHEST RECOMMENDATION: Lung-Rad 1 Negative: Continue annual screening with LDCT in 12 months. S Modifier (other clinically significant findings): None
== END | disposition home or self-care (01) ==
LOC: RADCTMAIN 09:14
PROVIDERS: ATTEND Family Medicine
DX: Z12.2 Encounter for screening for malignant neoplasm of respiratory organs (principal); Z87.891 Personal history of nicotine dependence
CPT/HCPCS: 71271

== ENCOUNTER → 2022-05-08 | Outpatient (CLI) | payer MEDICARE, OTHER ==
--- NOTE | 2022-05-08 13:31 | CT ---
EXAMINATION TYPE: CT soft tissue neck wo con DATE OF EXAM: 05/08/2022 HISTORY: PAIN AND MULTIPLE MASSES UNDER CHIN. PAIN UNDER TONGUE. COMPARISON: NONE CT DLP: 358.1 mGycm. Automated Exposure Control for Dose Reduction was Utilized. TECHNIQUE: CT scan of the neck is performed without IV contrast FINDINGS: Lack of IV contrast noted to Limited evaluation for subtle mucosal lesions and lymphadenopa thy. Airway: No gross abnormality seen. Parotid/submandibular glands: No significant abnormalities seen.. Osseous Structures: Reversal of normal cervical curvature. Moderate spurring and disc space narrowing C5-C6 and C6-C7 levels Other: Brain parenchyma shows at least mild generalized atrophy. Chronic but subcentimeter lymph node s throughout the neck bilaterally. No greater than 1 cm neck adenopathy. No obvious concerning solid or cystic mass at area of clinical concern below the mandible. Nasal septum deviated to right of midline. IMPRESSION: Suboptimal study without IV contrast. No obvious mass or adenopathy.
== END | disposition home or self-care (01) ==
LOC: RADCTMAIN 12:31
PROVIDERS: ATTEND Family Medicine
DX: R22.1 Localized swelling, mass and lump, neck (principal)
CPT/HCPCS: 70490

== ENCOUNTER → 2022-07-03 | Outpatient (CLI) | payer MEDICARE, OTHER ==
[2022-07-03 19:01] LABS: T4, Free (Free Thyroxine) 1.01 ng/dL (0.800-1.800)
== END | disposition home or self-care (01) ==
LOC: LABWHC1 11:31
PROVIDERS: ATTEND Internal Medicine Endocrinology, Diabetes & Metabolism
DX: E05.00 Thyrotoxicosis with diffuse goiter without thyrotoxic crisis or storm (principal)
CPT/HCPCS: 36415; 84439; 84443; 84445; 84480

== ENCOUNTER → 2022-09-15 | Outpatient (CLI) | payer MEDICARE, OTHER ==
[2022-09-17 09:25] LABS: T4, Free (Free Thyroxine) 1.1 ng/dL
[2022-09-17 10:24] LABS: Albumin 4.8 d/dL; Albumin/Globulin Ratio 2.4 Ratio; Anion Gap 13.1 mmol/L; BUN/Creat Ratio 12.78 Ratio; Blood Urea Nitrogen 11.5 mg/dL; Calcium 9.9 mg/dL; Carbon Dioxide 21.9 mmol/L; Potassium 4.8 mmol/L; Total Bilirubin 0.5 mg/dL; Total Protein 6.8 d/dL
[2022-09-18 09:53] LABS: African American GFR (CKD) 76.9; Non-African American GFR(CKD) 66.7
== END | disposition home or self-care (01) ==
LOC: LABWHC1 14:22
PROVIDERS: ATTEND Internal Medicine Endocrinology, Diabetes & Metabolism
DX: E05.00 Thyrotoxicosis with diffuse goiter without thyrotoxic crisis or storm (principal)
CPT/HCPCS: 36415; 80053; 84439; 84443; 84480

== ENCOUNTER → 2023-03-22 | Outpatient (CLI) | payer MEDICARE, OTHER ==
[2023-03-23 02:18] LABS: T4, Free (Free Thyroxine) 1.21 ng/dL (0.80-1.80)
== END | disposition home or self-care (01) ==
LOC: LABWHC1 13:45
PROVIDERS: ATTEND Internal Medicine Endocrinology, Diabetes & Metabolism
DX: E05.90 Thyrotoxicosis, unspecified without thyrotoxic crisis or storm (principal)
CPT/HCPCS: 36415; 84439; 84443; 84480

== ENCOUNTER → 2023-07-27 | Outpatient (CLI) | payer MEDICARE, OTHER ==
[2023-07-27 19:17] LABS: T4, Free (Free Thyroxine) 0.91 ng/dL (0.80-1.80)
== END | disposition home or self-care (01) ==
LOC: LABWHC1 12:19
PROVIDERS: ATTEND Internal Medicine Endocrinology, Diabetes & Metabolism
DX: E05.90 Thyrotoxicosis, unspecified without thyrotoxic crisis or storm (principal)
CPT/HCPCS: 36415; 84439; 84443; 84480

== ENCOUNTER → 2024-08-19 | Outpatient (CLI) | payer MEDICARE ==
--- NOTE | 2024-08-20 08:43 | MM ---
Reason for Exam: Screening (asymptomatic). Last mammogram was performed 5 year(s) and 0 month(s) ago. Patient History: Menarche at age 11. First Full-Term at age 22. Left ovary removed at age 56. Right ovary removed at age 56. Hysterectomy at age 56. Postmenopausal. Mother had breast cancer at or over age 50. Risk Values: Christina 5 year model risk: 3.6%. NCI Lifetime model risk: 10.9%. Prior Study Comparison: 10/02/2016 Bilateral Screening Mammogram, [facility]. 09/05/2019 Bilateral Screening Mammogram, [facility]. Tissue Density: There are scattered areas of fibroglandular density. Findings: Analyzed By CAD. Right breast: There is no suspicious group of microcalcifications or new suspicious mass. Left breast: There is no suspicious group of microcalcifications or new suspicious mass. Overall Assessment: Negative, BI-RAD 1 Management: Screening Mammogram of both breasts in [address] [facility] will attempt to contact patient to return for supplemental views and ultrasound if indicated. Patient should continue monthly self-breast exams. A clinical breast exam by your physician is recommended on an annual basis. This exam should not preclude additional follow-up of suspicious palpable abnormalities. Note on Christina scores and lifetime risk: 1. A Christina score greater than 3% is considered moderate risk. If this is the case, consider specialist referral to assess eligibility for a risk reducing agent. 2. If overall lifetime risk for the development of breast cancer is 20% or higher, the patient may qualify for future screening with alternating mammogram and breast MRI. [facility], , 08/20/2024 8:39 AM. Electronically signed and approved by: Domenico Taylor DO
== END | disposition home or self-care (01) ==
LOC: RADMAMWWP 15:26
PROVIDERS: ATTEND Family Medicine
DX: Z12.31 Encounter for screening mammogram for malignant neoplasm of breast (principal); Z13.1 Encounter for screening for diabetes mellitus; E05.90 Thyrotoxicosis, unspecified without thyrotoxic crisis or storm; M81.0 Age-related osteoporosis without current pathological fracture; I34.0 Nonrheumatic mitral (valve) insufficiency; I10 Essential (primary) hypertension; R92.323 Mammographic fibroglandular density, bilateral breasts; Z78.0 Asymptomatic menopausal state; Z80.3 Family history of malignant neoplasm of breast
CPT/HCPCS: 77063; 77067

== ENCOUNTER → 2024-08-25 | Outpatient (CLI) | payer MEDICARE ==
[2024-08-25 15:35] LABS: Basophils # (A) 0.07 X 10*3/uL (0.00-0.10); Basophils % (A) 1.1 %; Eosinophils # (A) 0.24 X 10*3/uL (0.04-0.35); Eosinophils % (A) 3.8 %; HGB 14.5 g/dL (12.0-15.0); Lymphocytes # (A) 2.95 X 10*3/uL (0.90-5.00); Lymphocytes % (A) 46.8 %; MCH 28.4 pg (27.0-32.0); MCHC 32.2 g/dL (32.0-37.0); MCV 88.2 FL (80.0-97.0); Mean Platelet Volume 11.9 FL (9.5-12.2); Monocytes # (A) 0.47 X 10*3/uL (0.20-1.00); Monocytes % (A) 7.5 %; NRBC Per 100 WBC 0 X 10*3/uL (0.00-0.01); Neutrophils # (A) 2.51 X 10*3/uL (1.80-7.70); Neutrophils % (A) 39.8 %; Platelet Count 267 X 10*3/uL (140-440); RDW 12.8 % (11.5-14.5)
[2024-08-25 17:21] LABS: ALT 47 U/L (8-44); AST 33 U/L (13-35); Albumin 4.6 g/dL (3.8-4.9); Albumin/Globulin Ratio 2.42 Ratio (1.60-3.17); Alkaline Phosphatase 93 U/L (41-126); BUN/Creat Ratio 19.56 Ratio (12.00-20.00); Blood Urea Nitrogen 17.6 mg/dL (9.0-27.0); Calcium 9.5 mg/dL (8.7-10.3); Carbon Dioxide 22.2 mmol/L (21.6-31.8); Chloride 104 mmol/L (96-109); Chol/HDL Ratio 5.94 Ratio; Globulin 1.9 g/dL (1.6-3.3); Glucose 92 mg/dL (70-110); LDL Cholesterol,Calculated 151.9 mg/dL (0.0-131.0); Potassium 4.9 mmol/L (3.5-5.5); Sodium 139 mmol/L (135-145); Total Bilirubin 0.6 mg/dL (0.3-1.2); Total Protein 6.5 g/dL (6.2-8.2)
== END | disposition home or self-care (01) ==
LOC: LABWHC1 11:05
PROVIDERS: ATTEND Family Medicine
DX: Z13.1 Encounter for screening for diabetes mellitus (principal); I10 Essential (primary) hypertension; I34.0 Nonrheumatic mitral (valve) insufficiency; E05.90 Thyrotoxicosis, unspecified without thyrotoxic crisis or storm; M81.0 Age-related osteoporosis without current pathological fracture
CPT/HCPCS: 36415; 80053; 80061; 82306; 83036; 84439; 84443; 85025